=== PATIENT | female | born 1950 | race Caucasian/White ===

== ENCOUNTER 2024-04-05 13:45 | Outpatient (AMB) | payer MEDICARE, OTHER, SELFPAY ==
--- NOTE | 2024-04-05 13:52 | A.OFFVIS_ITS ---
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 Allergies morphine Allergy (Severe, Verified 04/05/24 14:08) Anaphylaxis ibuprofen Allergy (Mild, Verified 04/05/24 14:08) Stomach Upset Sulfa (Sulfonamide Antibiotics) Allergy (Mild, Verified 04/05/24 14:08) nausa cortizon Allergy (Mild, Uncoded 04/05/24 14:08) Flushing Medication List - Last Reconciled 04/05/24 by Carlito Espitia MD cetirizine (Zyrtec) 10 mg PO DAILY PRN cholecalciferol (vitamin D3) 50 mcg PO DAILY famotidine 40 mg PO BID lisinopril 20 mg PO DAILY mecobalamin (vitamin B12) mcg PO metoprolol succinate ER 100 mg PO DAILY jfalfhtg-lejcitc-epkp-lutein tabs PO rosuvastatin 20 mg PO DAILY HPI Comments Details: Thank you for referring Angelia in cardiology consultation today for management of hypertension and noted fast heart rate. She said this started in October. Recently she has been taken off her estrogen replacement therapy and she is started having her postmenopausal symptoms at this time. However in October she was noted to have elevated heart rate and blood pressure. At that time metoprolol was added to her regimen and has been gradually increased now to 100 mg. Her heart rate has as a result on her own monitoring come down. Her blood pressure also has trended down. She comes today says occasionally feels palpitation when she lays on her left side where she feels heart rate racing. No skipped heartbeats. Since increasing her metoprolol with heart rate has trended down. Blood pressure is also better controlled. She comes to discuss management of her tachycardia and the cause for it as well as management of her blood pressure. She denies any other exertional symptoms. Denies any lightheadedness, syncope. Denies any exertional chest pain. She is planning to travel out of country in the near future and is low stressed about it although says that not very concerning to her. She also has a recent change in her symptoms with postmenopausal symptoms more frequent now since stopping her estrogen. She denies any orthopnea, PND, leg edema. [facility] Medical History HTN (hypertension) Surgical History Hx of cholecystectomy Hx of hysterectomy Hx of knee surgery Family History Father Lung cancer Mother No problems noted. Social History Patient Tobacco Use Status: Never used Tobacco Review of Systems Const Reports no additional complaints Eyes Reports no additional complaints Card Denies chest pain with activity, Reports rapid heart rate, Denies leg edema, Denies lightheadedness and Denies dyspnea on exertion Resp Reports no additional complaints and Denies dyspnea on exertion GI Reports no additional complaints Reports no additional complaints Musc Reports no additional complaints Neuro Reports no additional complaints Psych Reports no additional complaints Endo Reports no additional complaints Physical Exam Vital Signs: Last Vital Signs Pulse 102 H 04/05/24 13:54 BP 122/74 04/05/24 13:54 BMI result Body Mass Index 35.6 Const General: cooperative, comfortable, no acute distress, alert, awake, Physically active and well groomed Nutritional Appearance: obese Orientation/consciousness: patient oriented x3 Limitations: no limitations HEENT Head: Yes normocephalic and Yes atraumatic Neck Neck: Yes trachea midline, Yes supple and Yes no JVD Resp Effort & Inspection: normal respiratory effort Auscultation: clear to auscultation bilaterally Cardio Jugular venous distension: no JVD Palpation: normal PMI Rate: tachycardic Rhythm: regular rhythm Heart sounds: S1 normal heart sound present, S2 normal heart sound present, no click, no gallops, no murmurs and no rubs GI Auscultation: normal bowel sounds Skin General skin exam: no rashes or lesions noted Neuro General: patient oriented x3 and no focal motor deficits Extrem General: Yes no clubbing, cyanosis or edema Office Procedures EKG Details: EKG shows sinus tachycardia otherwise normal EKG 93958-[id number], Complete Assessment & Plan Assessment & Plan (1) Sinus tachycardia: Code(s): R00.0 - Tachycardia, unspecified Category: Medical Plan: Sinus tachycardia which appears to be physiologic probably related to increased stress as well as recent change in her hormonal status. Will check with TSH and plasma catecholamine levels to rule out any other endocrine issues. Although it seems like at home heart rate has gradually settled down with increased dose of metoprolol with heart rate in the 70s and 80s. At this point time will continue metoprolol therapy which is also a good antihypertensive. Will check Holter monitor once she returns from her trip. Advised stress mitigation strategies. Avoidance of stimulants such as caffeine, pseudo ephedrine and alcohol. (2) HTN (hypertension): Code(s): I10 - Essential (primary) hypertension Category: Medical Plan: Hypertension which is currently well optimized. Management of hypertension was discussed in details. Will continue lisinopril and metoprolol at current dose. Blood pressure seems to be better controlled at this point in time. Advised to continue monitor blood pressure at home maintain a log. Avoidance of stimulants was discussed. Stress mitigation strategies was discussed. Low-salt diet was discussed. Advised to increase fluid intake and participate in weight loss program. Will check with echocardiogram in near future. Will follow with her after testing Orders: Orders TSH reflex Free T4 04/05/24 R00.0 - Tachycardia, unspecified Metanephrines, Plasma 04/05/24 R00.0 - Tachycardia, unspecified CA echo transthoracic complete 2 Months I10 - Essential (primary) hypertension ECG 3 day holter monitor 3 Months R00.0 - Tachycardia, unspecified Coding Level of Care Code New Pt Level 4 (86674) Diagnoses Sinus tachycardia R00.0 HTN (hypertension) I10 CPT Codes EKG - CPT: 31571-Ttuxnykayjowatffr, Complete ([id number])
[2024-04-05 13:54] VITALS: BP 122/74; PULSE 102; BMI 35.6
== END 2024-04-05 14:47 | disposition home or self-care (01) ==
PROVIDERS: PCP Family Medicine; Visit Provider Internal Medicine Cardiovascular Disease
DX: R00.0 Tachycardia, unspecified (principal); I10 Essential (primary) hypertension
CPT/HCPCS: 93010; 99204

== ENCOUNTER 2024-04-05 13:45 | Outpatient (REF) | payer MEDICARE, OTHER, SELFPAY ==
[2024-04-05 16:08] LABS: TSH reflex Free T4 0.77 uIU/mL (0.32-4.0)
[2024-04-10 11:44] LABS: Metanephrine, Free <25 pg/mL (<=57); Normetanephrines, Free 99 pg/mL (<=148); Total Metanephrine, Free 99 pg/mL (<=205)
== END 2024-04-05 13:46 | disposition home or self-care (01) ==
LOC: HO.LAB 13:45
PROVIDERS: PCP Family Medicine; Visit Provider Internal Medicine Cardiovascular Disease
DX: R00.0 Tachycardia, unspecified (principal); I10 Essential (primary) hypertension
CPT/HCPCS: 36415; 83835; 84443; 93005; 99202

== ENCOUNTER → 2024-06-11 10:09 | Outpatient (REF) | payer MEDICARE, OTHER, SELFPAY ==
--- NOTE | 2024-06-11 10:13 | HM_ITS ---
Conclusion: 1. Patient was monitored for total period of 3 days 2. Baseline was normal sinus rhythm with average heart of 85 beats per minute 3. No significant pauses noted 4. Rare PACs and PVCs noted 5. One episode of 15 beat run of SVT, most consistent with atrial fibrillation 117 beats per minute 6. No patient reported events MTDD
--- NOTE | 2024-06-11 10:13 | CA_ITS ---
Transthoracic Echocardiogram Patient (Last, First, Middle): Angelia Roca, Gender: Female Date of : 1950 Age: 73 Procedure Date: 06/11/2024 Procedure Type: Transthoracic Echocardiogram Location: OP Height: 165.1 cm Weight: 96.62 kg BSA: 2.03 m2 Heart Rate: 80 bpm BP: 132 / 72 mmHg Supervisor [place]: JACQUI Referring MD: Carlito Espitia MD Symptoms: I10 - Essential (primary) hypertension Study Quality: Adequate w contrast ECG Rhythm: Sinus Conclusions: - The left ventricular systolic function is normal. The calculated ejection fraction is 56% by biplane method. - No obvious valvular pathology seen on this study. Findings Procedure Information Contrast agent, definity, is being given per protocol without apparent complications. The quality of the study was technically difficult. The study quality is limited by patients body habitus. Left Ventricle Normal left ventricular cavity size. There is normal left ventricular wall thickness. The left ventricular systolic function is normal. The calculated ejection fraction is 56% by biplane method. There is no evidence of regional wall motion abnormalities. Diastolic function is normal for age. Right Ventricle Normal right ventricular cavity size and systolic function. Atria Both atria are normal in size. Aortic Valve There is a normal trileaflet aortic valve. There is no aortic valve stenosis. There is no aortic valve regurgitation. Mitral Valve There is mild anterior mitral leaflet thickening. There is no mitral valve regurgitation. There is no mitral valve stenosis. Pulmonic Valve The pulmonic valve is likely normal. Tricuspid Valve Normal tricuspid valve structure. There is trace tricuspid valve regurgitation. There is no evidence of pulmonary hypertension. Great Vessels The aortic annulus, sinuses of valsalva, and asc aorta are normal in size. Venous The inferior vena cava was not well visualized. Pericardium/Pleural There is no evidence of pericardial effusion. Prior Study Comparison No prior study available for comparison. Recommendations, Care & Conclusions No obvious valvular pathology seen on this study. Measurements 2D Linear Measurements IVSd: 0.70 0.6-0.9/0.6-1.0 cm LVIDd: 4.95 3.9-5.3/4.2-5.9 cm LVIDd Index: 2.44 2.4-3.2/2.2-3.1 cm/m2 LVIDs: 3.29 2.0-3.6 cm LVPWd: 0.69 0.7-1.1 cm LA Diam: 3.60 2.7-3.8/3.0-4.0 cm LAIDs Index: 1.77 1.5-2.3 cm/m2 LV Mass: 139.90 67-162/88-224 g LV Mass Index: 68.92 43-95/49-115 g/m2 LVOT Diam: 2.30 3.0+(-)1.3 cm 2D Systolic Function EF 4C: 54.00 >55% EF 2C: 57.90 >55% EF BiP: 55.80 >55% Mitral Valve MV Pk E: 0.73 MV PK A: 0.90 MV Decel Time: 227.00 E/A: 0.80 E'Lateral: 10.20 E'Medial: 5.98 E/E' Med: 12.20 E/E' Lat: 7.10 PHT: 67.00 MVA PHT: 3.28 Decel Tyler: 3.21 Aortic Valve AoV Pk Carroll: 1.04 AoV Pk Grad: 4.00 ARIADNA: 4.66 LVOT LVOT Pk Carroll: 0.97 LVOT Mn Carroll: 0.79 LVOT VTI: 0.23 LVOT Pk Grad: 4.00 LVOT Mn Grad: 3.00 LVOT Diam: 2.30 LVOT Area: 4.15 Diastolic Function MV Pk E: 0.73 MV Pk A: 0.90 E/A: 0.80 E'Medial: 5.98 E/E' Med: 12.20 E' Laterial: 10.20 E/E' Lat: 7.10 Right Ventricle TAPSE (mm): 20.90 TVS' Carroll: 9.79 Tricuspid Valve TR Pk Carroll: 2.16 TR Pk Grad: 19.00 RA Press: 3.00 RVSP: 22.00 Great Vessels Aorta Sinus of Valsalva: 2.90 2.0-3.5 cm Ao Asc: 3.30 2.1-3.4 cm Pulmonary Veins Pulm Vein S/D 1.70 Pulmonary Valve PV Pk Carroll: 0.74 Peak PV Grad: 2.00 Updated in Other Vendor System with Status of Final Francisco J Burroughs MD electronically signed on 06/11/2024 11:52:53 AM with status of Final
== END ==
LOC: HO.CARD 10:09
PROVIDERS: PCP Family Medicine; Visit Provider Internal Medicine Cardiovascular Disease
DX: R00.0 Tachycardia, unspecified (principal); I10 Essential (primary) hypertension
CPT/HCPCS: 93242; 93306; Q9957

== ENCOUNTER → 2024-06-11 10:13 | Outpatient (BNV) | payer MEDICARE, OTHER, SELFPAY | PROVIDERS: PCP Family Medicine; Visit Provider Internal Medicine | DX: I49.1 Atrial premature depolarization (principal); I49.3 Ventricular premature depolarization | CPT/HCPCS: 93244; 93306 ==

== ENCOUNTER 2024-06-14 14:44 | Outpatient (AMB) | payer MEDICARE, OTHER, SELFPAY ==
[2024-06-14 14:48] VITALS: BP 124/80; PULSE 98; BMI 35.9
--- NOTE | 2024-06-14 14:48 | MHC.OFFVIS ---
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 Allergies morphine Allergy (Severe, Verified 04/05/24 14:08) Anaphylaxis ibuprofen Allergy (Mild, Verified 04/05/24 14:08) Stomach Upset Sulfa (Sulfonamide Antibiotics) Allergy (Mild, Verified 04/05/24 14:08) nausa cortizon Allergy (Mild, Uncoded 04/05/24 14:08) Flushing Medication List - Last Reconciled 06/14/24 by Carlito Espitia MD cetirizine (Zyrtec) 10 mg PO DAILY PRN cholecalciferol (vitamin D3) 50 mcg PO DAILY famotidine 40 mg PO BID lisinopril 20 mg PO DAILY mecobalamin (vitamin B12) mcg PO metoprolol succinate ER 100 mg PO DAILY gfaixeix-taeglwj-klye-lutein tabs PO rosuvastatin 20 mg PO DAILY HPI Comments Details: Angelia comes for follow-up. No new cardiac symptoms at this point. She says a blood pressure heart rate have been well controlled at home. Her endocrine workup is within normal limits. Echocardiogram shows normal cardiac structure and function. Her Holter monitor was returned today and I do not have it for review and has not been resulted. [facility] Medical History HTN (hypertension) Surgical History Hx of cholecystectomy Hx of hysterectomy Hx of knee surgery Family History Father Lung cancer Mother No problems noted. Social History Patient Tobacco Use Status: Never used Tobacco Review of Systems Const Denies chills, Denies fatigue, Denies fever(s), Denies frequent falls, Denies weakness, Denies weight gain and Denies weight loss ENT Denies dizziness Card Denies chest pain, Denies leg edema, Denies lightheadedness, Denies palpitations, Denies dyspnea, Denies dyspnea on exertion, Denies orthopnea and Denies other (loss of consciousness) Resp Denies cough, Denies dyspnea and Denies dyspnea on exertion GI Denies hematochezia and Denies change in stool character Musc Denies abnormal gait, Denies muscle weakness, Denies numbness, Denies radiating pain into limb and Denies tingling Neuro Denies abnormal gait, Denies dizziness, Denies frequent falls, Denies numbness, Denies tingling and Denies weakness Endo Denies fatigue and Denies palpitations Physical Exam Vital Signs: Last Vital Signs Pulse 98 06/14/24 14:48 BP 124/80 06/14/24 14:48 BMI result Body Mass Index 35.9 Const General: cooperative, comfortable, no acute distress, alert, awake, Physically active and well groomed Nutritional Appearance: obese Orientation/consciousness: patient oriented x3 Limitations: no limitations HEENT Head: Yes normocephalic and Yes atraumatic Neck Neck: Yes trachea midline, Yes supple and Yes no JVD Resp Effort & Inspection: normal respiratory effort Auscultation: clear to auscultation bilaterally Cardio Jugular venous distension: no JVD Palpation: normal PMI Rate: tachycardic Rhythm: regular rhythm Heart sounds: S1 normal heart sound present, S2 normal heart sound present, no click, no gallops, no murmurs and no rubs GI Auscultation: normal bowel sounds Skin General skin exam: no rashes or lesions noted Neuro General: patient oriented x3 and no focal motor deficits Extrem General: Yes no clubbing, cyanosis or edema Assessment & Plan Assessment & Plan (1) HTN (hypertension): Code(s): I10 - Essential (primary) hypertension Category: Medical Plan: Hypertension sinus tachycardia both controlled by increase metoprolol therapy. Continue the same. Continue lisinopril therapy as well. Advised to maintain adequate hydration. Stress mitigation strategies were discussed. Advised to increase exercise to improve vagal tone. Will review the Holter monitor for any arrhythmias although unlikely. Further treatment based if at all on abnormality on the Holter monitor. Continue risk factor modification. Currently on high-intensity statin therapy. Target goal LDL less than 100 mg/dL. Will follow up in the clinic in 1 year's time on her request. Thank you for allowing me to partake in the care Coding Level of Care Code Est Pt Level 3 (20962) Diagnoses HTN (hypertension) I10
== END 2024-06-14 15:21 | disposition home or self-care (01) ==
PROVIDERS: PCP Family Medicine; Visit Provider Internal Medicine Cardiovascular Disease
DX: I10 Essential (primary) hypertension (principal)
CPT/HCPCS: 99213

== ENCOUNTER → 2024-06-14 14:44 | Outpatient (BNVA) | payer MEDICARE, OTHER, SELFPAY | PROVIDERS: PCP Family Medicine; Visit Provider Internal Medicine Cardiovascular Disease | DX: I10 Essential (primary) hypertension (principal) | CPT/HCPCS: 99212 ==

== ENCOUNTER 2024-08-09 15:50 | Emergency (ER) | payer MEDICARE, OTHER, SELFPAY ==
--- NOTE | ~2024-08-09 | CT_ITS ---
EXAMINATION: CT ABDOMEN AND PELVIS WITH CONTRAST CLINICAL INFORMATION: Right lower quadrant pain, nausea/vomiting COMPARISON: None available. TECHNIQUE: Multidetector volumetric images were obtained from the superior aspect of the liver through the pubic symphysis following administration 85 mL of Omnipaque 350 intravenous contrast. Sagittal and coronal reformatted images were obtained on the technologist's workstation. Oral contrast: No This CT examination was performed using dose optimization techniques as appropriate, variously including the following: *Automated exposure control *Adjustment of mA and/or kV according to patient size (this includes techniques or standardized protocols for targeted exams where dose is matched to indication/reason for exam; i.e. extremities or head) *Use of iterative reconstruction technique DLP: 842 mGy-cm FINDINGS: Limited evaluation in some regions due to motion artifact. LUNG BASES: The visualized lung bases are unremarkable. LIVER, GALLBLADDER, AND BILIARY TREE: The liver is normal in size, shape, and attenuation. No focal hepatic lesion or significant biliary ductal dilatation is present. Patient is status post cholecystectomy. PANCREAS: Unremarkable. SPLEEN: Unremarkable. ADRENAL GLANDS: Unremarkable. KIDNEYS AND URETERS: Bilateral nephrograms are symmetric. No hydronephrosis or obstructing calculus identified. Small hypodensity in the posterior right kidney favors a cyst; no follow-up recommended. BLADDER: Minimally distended and suboptimally assessed. Subtle stranding is noted adjacent to the anterior aspect of the bladder. GASTROINTESTINAL TRACT: No evidence of bowel obstruction or significant wall thickening. Sigmoid colon diverticulosis is noted. The appendix is unremarkable. No free fluid or free air is seen. ABDOMINAL WALL: No significant hernia is appreciated. LYMPH NODES: Normal. VASCULAR: Mild scattered atherosclerotic calcifications. PELVIC VISCERA: Patient is status post hysterectomy. OSSEOUS STRUCTURES: Disc space narrowing and endplate osteophytes, most prominently in the lower thoracic spine. CT/CT abdomen pelvis w IV con IMPRESSION: 1. Limited evaluation in some regions due to motion artifact. Subtle stranding adjacent to the anterior aspect of the bladder, which could reflect cystitis in the proper clinical setting. Correlation with urinalysis is recommended. 2. Normal appendix. 3. Sigmoid colon diverticulosis without diverticulitis. Electronically signed by: Vipul Ayala MD 08/09/2024 09:47 PM EDT
[2024-08-09 15:56] VITALS: BP 140/81; PULSE 100; RESP 18; TEMP 37.2; O2SAT 97; BMI 36.5
[2024-08-09 16:02] VITALS: BP 140/81; PULSE 100; RESP 18; TEMP 37.2; O2SAT 97
--- NOTE | 2024-08-09 16:03 | PC.NURSE ---
Pt. in ED room 22 at this time. On continuous SPO2 monitor. VSS
--- NOTE | 2024-08-09 16:17 | PC.NURSE ---
20G IV inserted to L lower forearm. Tolerated well.
--- NOTE | 2024-08-09 16:22 | ECG_ITS ---
Test Reason : ABD PAIN Blood Pressure : / mmHG Vent. Rate : 088 BPM Atrial Rate : 088 BPM P-R Int : 156 ms QRS Dur : 074 ms QT Int : 380 ms P-R-T Axes : 049 003 015 degrees QTc Int : 459 ms Normal sinus rhythm Normal ECG No previous ECGs available Referred By: Emelia Dumas Electronically Signed By:ARIANNA BERNARD
[2024-08-09 16:33] LABS: MANUAL DIFF FLAG NO
[2024-08-09] MEDS: ondansetron HCL 4 MG/2 ML VIAL IVPUSH (16:33)
[2024-08-09] MEDS: Ketorolac Tromethamine 30 MG/ML VIAL IVPUSH (16:33)
[2024-08-09] MEDS: Famotidine/PF 20 MG/2 ML VIAL IVPUSH (16:33)
[2024-08-09] MEDS: 0.9 % Sodium Chloride 1,000 ML 999 ML IVCONT (16:33)
--- NOTE | 2024-08-09 16:33 | PC.NURSE ---
Pt. medicated per JAN.
[2024-08-09 16:36] LABS: Basophils Percent Auto 0.2 % (0-2); Eosinophils Absolute Auto 0.1 X10*3/uL (0.0-0.4); Eosinophils Percent Auto 0.6 % (0-4); Hematocrit 44.7 % (37.0-47.0); Imm Gran Abs Auto 0.02 X10*3/uL (0.00-0.03); Imm Gran Pct Auto 0.2 % (0.0-0.4); Lymphocytes Absolute Auto 2.2 X10*3/uL (1.2-4.9); Lymphocytes Percent Auto 26.2 % (20-40); Mean Corpuscular HGB Conc 33.6 g/dl (31.0-35.0); Mean Corpuscular Hemoglobin 31.5 pg (27.0-33.0); Mean Corpuscular Volume 93.9 fL (80.0-98.0); Mean Platelet Volume 12.2 fL (9.4-12.3); Monocytes Absolute Auto 0.4 X10*3/uL (0.1-1.2); Monocytes Percent Auto 4.9 % (2-11); Neutrophils Absolute Auto 5.7 x10*3/uL (2.0-8.3); Neutrophils Percent Auto 67.9 % (45-73); Platelet Count 213 X10*3/uL (160-400); Red Blood Count 4.76 X10*6/uL (4.20-5.50); Red Cell Distribution Width 12.4 % (11.0-16.0); White Blood Count 8.4 X10*3/uL (4.8-10.8)
--- NOTE | 2024-08-09 16:40 | ED.ABDPAIN ---
HPI - Abdominal Pain General Chief Complaint: Abdominal Pain Stated Complaint: right side abd pain, vomiting Time Seen by Provider: 08/09/24 16:00 Source: patient and family Mode of arrival: ambulatory Limitations: no limitations History of Present Illness ED Provider: Dr. Emelia Dumas HPI narrative: Patient comes to the emergency room complaining right lower quadrant pain. Patient states that she has been having posterior right hip pain for about 6 weeks, previously diagnosed with bursitis of the hip. However, this pain is something completely different and new that started approximately 24 hours ago. Patient states she has been having nausea and vomiting, no diarrhea. Patient complaining of chills, no known fever. Pain is constant, radiating towards the groin area. Patient denies any falls or trauma. Patient denies hematuria or dysuria, denies history of kidney stones Related Data Home Medications ?Medication ?Instructions ?Recorded ?Confirmed cetirizine 10 mg capsule (Zyrtec) 10 mg PO DAILY PRN 04/05/24 06/14/24 cholecalciferol (vitamin D3) 50 50 mcg PO DAILY 04/05/24 06/14/24 mcg (2,000 unit) capsule famotidine 40 mg tablet 40 mg PO BID 04/05/24 06/14/24 lisinopril 20 mg tablet 20 mg PO DAILY 04/05/24 06/14/24 mecobalamin (vitamin B12) 500 mcg mcg PO 04/05/24 06/14/24 chewable tablet metoprolol succinate 100 mg 100 mg PO DAILY 04/05/24 06/14/24 tablet,extended release 24 hr livdphaa-hhwzymq-jgex-lutein tablet tab PO 04/05/24 06/14/24 rosuvastatin 20 mg tablet 20 mg PO DAILY 04/05/24 06/14/24 Allergies Allergy/AdvReac Type Severity Reaction Status Date / Time morphine Allergy Severe Anaphylaxis Verified 08/09/24 15:59 ibuprofen Allergy Mild Stomach Verified 08/09/24 15:59 Upset Sulfa (Sulfonamide Allergy Mild nausa Verified 08/09/24 15:59 Antibiotics) cortizon Allergy Mild Flushing Uncoded 08/09/24 15:59 Review of Systems Review of Systems Constitutional : No Weight loss, No Fever, No Chills, No Night Sweats, No Fatigue, No Malaise ENT/Mouth : No Hearing loss, No Ear Pain, No Nasal Congestion, No Sinus Pain, No Hoarseness, No sore throat, No Rhinorrhea, No Swallowing Difficulty Eyes: No Eye Pain, No Swelling, No Redness, No Foreign Body, No Discharge, No Vision Changes Cardiovascular : No Chest Pain, No SOB, No Dyspnea on Exertion, No Orthopnea, No Edema, No Palpitations Respiratory : No Cough, No Sputum, No Wheezing, No Smoke Exposure, No Dyspnea Gastrointestinal : Complaining of nausea and vomiting, no diarrhea, complaining of constant right lower quadrant pain slightly radiating towards the right groin area Genitourinary : no irregular bleeding, No Dysuria, No Urinary Frequency, No Hematuria, No Urinary Incontinence, No Urgency, No Flank Pain, No Urinary Flow Changes, No Hesitancy Musculoskeletal : Complaining of chronic bursitis of the right hip, No Myalgias, No Joint Swelling Skin : No Skin Lesions, No rash Neuro : No Weakness, No Numbness, No Paresthesias, No Loss of Consciousness, No Dizziness, No Headache Psych : No Anxiety/Panic, No Depression, No SI/HI/AH/VH, No Social Issues, Heme/Lymph: No Bruising, No Bleeding,No Lymphadenopathy Endocrine : No Polyuria, No Polydipsia, No Temperature Intolerance PMFSH Past Medical History Medical History HTN (hypertension) Surgical History Hx of cholecystectomy Hx of hysterectomy Hx of knee surgery Family History Family History Father Lung cancer Mother No problems noted. Social History Social History Patient Tobacco Use Status: Never used Tobacco Smoked in Last 30 Days: No Use of substances other than those prescribed or required for medical reasons: No Advance Directives: No Advance Directives Information Provided: No Do you have a plan to hurt others: No Plan Physical Exam ED Vital Signs: Vital Signs - 24 hr 08/09/24 15:56 08/09/24 16:02 08/09/24 18:00 Temperature 98.9 F 98.9 F 98.2 F Pulse Rate 100 100 91 Respiratory Rate 18 18 18 Blood Pressure 140/81 H 140/81 H 112/53 L Pulse Oximetry 97 97 96 Oxygen Delivery Method Room Air Room Air Room Air 08/09/24 20:00 08/09/24 22:00 Temperature 98.2 F 98.9 F Pulse Rate 81 99 Respiratory Rate 18 18 Blood Pressure 148/80 H 127/66 Pulse Oximetry 93 92 Oxygen Delivery Method Room Air Room Air BMI result Body Mass Index 36.5 Const Other: Appearance: Alert. Oriented X3. No acute distress. Patient seems uncomfortable, in pain Eyes: Pupils equal, round and reactive to light. ENT: Pharynx normal. Neck: Normal inspection. Neck supple. No lymph nodes noted. No crepitus CVS: Normal heart rate and rhythm. Pulses normal. Normal S1 and S2 Respiratory: No respiratory distress. Breath sounds normal. No Wheezing. No rales Abdomen: Soft, slight tenderness to palpation in the right upper quadrant but more prominent in the right lower quadrant. No rebound. Skin: Skin warm and dry. Normal skin color. Normal skin turgor. Extremities: No lower extremity edema. No Lacerations. No Rash Neuro: Oriented X 3. No motor deficit. No sensory deficit. Moving all extremities. No slurred speech. CN 2 through 12 grossly intact Psych: calm, cooperative, normal affect Course Course Course Narrative: -all of patient's labs and imaging pending -patient receiving IV fluids, Zofran, Pepcid and ketorolac. Of note, patient known to have anaphylaxis reaction to morphine Medical Decision Making Medical Decision Making MDM Narrative: My interpretation of labs: Normal hematology, no significant abnormality and chemistry. Urinalysis has very mild proteinuria. No signs of UTI. -CT scans do not show any obvious abnormality other than possible cystitis. However, patient does not have a UTI. -after patient received the 1st dose of medication, patient states that she is no longer nauseous because she is no longer in pain. -patient was ambulated in the emergency room, did well walking with steady gait and painless. -patient instructed to follow-up with her primary care physician, patient instructed to return if any of her symptoms returned. Differential Diagnosis Differential Diagnoses: The differential diagnosis associated with the presentation includes (Appendicitis, ureterolithiasis, SBO, incarcerated hernia, bursitis, musculoskeletal pain) Admission/Observation Consideration of admission/observation: Escalation of care including admission/observation considered (Given patient's level of discomfort on arrival, admission/observation was considered) Lab Data MDM Lab Attestation statement: I reviewed the patient's lab results. 08/09/24 16:29 08/09/24 19:15 Labs: Lab Results 08/09/24 08/09/24 08/09/24 Range/Units 16:29 16:55 19:15 WBC 8.4 (4.8-10.8) X10*3/uL RBC 4.76 (4.20-5.50) X10*6/uL Hgb 15.0 (12.0-16.0) g/dl Hct 44.7 (37.0-47.0) % MCV 93.9 (80.0-98.0) fL MCH 31.5 (27.0-33.0) pg MCHC 33.6 (31.0-35.0) g/dl RDW 12.4 (11.0-16.0) % Plt Count 213 (160-400) X10*3/uL MPV 12.2 (9.4-12.3) fL Immature Gran % (Auto) 0.2 (0.0-0.4) % Neut % (Auto) 67.9 (45-73) % Lymph % (Auto) 26.2 (20-40) % Nicholas % (Auto) 4.9 (2-11) % Eos % (Auto) 0.6 (0-4) % Baso % (Auto) 0.2 (0-2) % Lymph # (Auto) 2.2 (1.2-4.9) X10*3/uL Nicholas # (Auto) 0.4 (0.1-1.2) X10*3/uL Eos # (Auto) 0.1 (0.0-0.4) X10*3/uL Baso # (Auto) 0.0 (0.0-0.2) X10*3/uL Abs Immat Gran (auto) 0.02 (0.00-0.03) X10*3/uL Absolute Neuts (auto) 5.7 (2.0-8.3) x10*3/uL Absolute Nucleated RBC 0.000 (0.0-0.012) X10*3/uL Nucleated RBC % (auto) 0.0 (0.0-0.2) /100WBC PT 11.7 (10.9-12.4) SEC INR 1.0 (0.9-1.1) Sodium 142 (135-145) mmol/L Potassium 4.8 (3.3-5.1) mmol/L Chloride 109 H (96-108) mmol/L Carbon Dioxide 26 (22-29) mmol/L Anion Gap 12 (12-20) BUN 16 (9-16) mg/dL Creatinine 1.02 (0.5-1.4) mg/dL Estim Creat Clear Calc 59.0 Estimated GFR 53 Random Glucose 129 H (60-115) mg/dL Lactic Acid 1.4 (0.5-2.0) mmol/L Calcium 9.4 (8.4-10.2) mg/dL Magnesium 2.0 (1.6-2.6) mg/dL Total Bilirubin 0.4 (0.0-1.0) mg/dL Direct Bilirubin 0.1 (0.0-0.5) mg/dL AST 24 (5-31) U/L ALT 28 (0-31) U/L Alkaline Phosphatase 91 (39-117) U/L Troponin I High Sens < 2.7 (<3.5-17.0) ng/L Total Protein 6.9 (6.5-8.0) g/dL Albumin 4.1 (3.5-5.0) g/dL Lipase 27 (8-78) U/L Urine Color Dark Yellow Urine Appearance Clear Urine pH 5.0 (5.0-9.0) Ur Specific [place] 1.025 (1.005-1.025) Urine Protein 30 (1+) H (Neg-Trace) mg/dL Urine Glucose (UA) Negative (Negative) mg/dL Urine Ketones Trace (Negative) mg/dL Urine Blood Negative (Negative) Urine Nitrite Negative (Negative) Ur Leukocyte Esterase Negative (Negative) Urine RBC 0-2 (0-2) /HPF Urine WBC 0-5 (0-5) /HPF Ur Squamous Epith Cells 0-2 (0-2) /HPF Urine Bacteria None Seen (None Seen) Hyaline Casts 3-5 (0-2) /LPF Independent Interpretation I performed an independent interpretation of an: CT Scan Radiology Impression Discussion of test interpretation with radiology: I have reviewed the radiologist's reading. Radiologist Impression: FINDINGS: Limited evaluation in some regions due to motion artifact. LUNG BASES: The visualized lung bases are unremarkable. LIVER, GALLBLADDER, AND BILIARY TREE: The liver is normal in size, shape, and attenuation. No focal hepatic lesion or significant biliary ductal dilatation is present. Patient is status post cholecystectomy. PANCREAS: Unremarkable. SPLEEN: Unremarkable. ADRENAL GLANDS: Unremarkable. KIDNEYS AND URETERS: Bilateral nephrograms are symmetric. No hydronephrosis or obstructing calculus identified. Small hypodensity in the posterior right kidney favors a cyst; no follow-up recommended. BLADDER: Minimally distended and suboptimally assessed. Subtle stranding is noted adjacent to the anterior aspect of the bladder. GASTROINTESTINAL TRACT: No evidence of bowel obstruction or significant wall thickening. Sigmoid colon diverticulosis is noted. The appendix is unremarkable. No free fluid or free air is seen. ABDOMINAL WALL: No significant hernia is appreciated. LYMPH NODES: Normal. VASCULAR: Mild scattered atherosclerotic calcifications. PELVIC VISCERA: Patient is status post hysterectomy. OSSEOUS STRUCTURES: Disc space narrowing and endplate osteophytes, most prominently in the lower thoracic spine. CT/CT abdomen pelvis w IV con IMPRESSION: 1. Limited evaluation in some regions due to motion artifact. Subtle stranding adjacent to the anterior aspect of the bladder, which could reflect cystitis in the proper clinical setting. Correlation with urinalysis is recommended. 2. Normal appendix. 3. Sigmoid colon diverticulosis without diverticulitis. Independent Historian Clinical information obtained from an independent historian. History obtained from or confirmed by: Spouse and Other (Niece) Medications Administered Discontinued Medications Generic Name Dose Route Start Last Admin Trade Name Freq PRN Reason Stop Dose Admin Famotidine 20 mg 08/09/24 16:25 08/09/24 16:33 Famotidine/Pf 20 Mg/2 Ml Vial IVPUSH 08/09/24 16:26 20 mg ONCE ONE Administration Sodium Chloride 1,000 mls @ 999 mls/hr 08/09/24 16:22 08/09/24 17:55 Ns IVCONT 08/09/24 17:22 Infused .Q1H1M ONE Infusion Acetaminophen 1,000 mg in 100 mls @ 400 mls/hr 08/09/24 21:45 08/09/24 22:14 Ofirmev IV 08/09/24 21:59 Not Given ONCE ONE Iohexol 100 ml 08/09/24 20:07 08/09/24 20:07 Iohexol 350 Mg/Ml 100 Ml Infus..Btl IV 08/09/24 20:08 85 ml ONCE ONE Administration Ketorolac Tromethamine 30 mg 08/09/24 16:24 08/09/24 16:33 Ketorolac Tromethamine 30 Mg/Ml Vial IVPUSH 08/09/24 16:25 30 mg ONCE ONE Administration Ondansetron HCl 4 mg 08/09/24 16:25 08/09/24 16:33 Ondansetron Hcl 4 Mg/2 Ml Vial IVPUSH 08/09/24 16:26 4 mg ONCE ONE Administration Critical Care Time Critical Care Time Critical Care Time: Yes Total Critical Care Time: 45 Attestation: I have personally provided critical care time. Time includes review of lab data, radiology results, discussion with consultants, and monitoring for potential decompensation. Intervention performed as documented. Discharge Plan Discharge Clinical Impression: Abdominal pain Patient Disposition: Home, Self-Care Instructions: Abdominal Pain (ED) Additional Instructions: Please follow-up with your primary care physician tomorrow. If you have any worsening or new symptoms, please return to the emergency room or call 911 Prescriptions: No Action metoprolol succinate 100 mg tablet extended release 24 hr 100 mg PO DAILY lisinopril 20 mg tablet 20 mg PO DAILY famotidine 40 mg tablet 40 mg PO BID rosuvastatin 20 mg tablet 20 mg PO DAILY rovrbzcs-awaflov-qkod-lutein Tablet PO cholecalciferol (vitamin D3) 50 mcg (2,000 unit) capsule 50 mcg PO DAILY mecobalamin (vitamin B12) 500 mcg tablet,chewable PO Zyrtec 10 mg capsule 10 mg PO DAILY PRN Print Language: Divehi
[2024-08-09 17:02] LABS: Troponin-I High Sensitivity < 2.7 ng/L (<3.5-17.0)
[2024-08-09 17:14] LABS: Lactic Acid 1.4 mmol/L (0.5-2.0)
[2024-08-09 17:21] LABS: Prothrombin Time 11.7 SEC (10.9-12.4)
[2024-08-09 18:00] VITALS: BP 112/53; PULSE 91; RESP 18; TEMP 36.8; O2SAT 96
--- NOTE | 2024-08-09 19:00 | PC.NURSE ---
Report taken from Razia Brown RN
[2024-08-09 19:24] LABS: Appearance Urine Clear; Color Urine Dark Yellow; Glucose Urine UA Negative (Negative); Leukocyte Esterase Urine Negative (Negative); Nitrite Urine Negative (Negative); Specific Gravity - Urine 1.025 (1.005-1.025); UMIC TRIGGER UACC YES; Urine Blood Negative (Negative); Urine Ketones Trace mg/dL (Negative); Urine Protein 30 (1+) mg/dL (Neg-Trace)
[2024-08-09 19:41] LABS: Alanine Aminotransferase 28 U/L (0-31); Albumin Level 4.1 g/dL (3.5-5.0); Alkaline Phosphatase 91 U/L (39-117); Anion Gap 12 (12-20); Aspartate Amino Transferase 24 U/L (5-31); Bilirubin Direct 0.1 mg/dL (0.0-0.5); Bilirubin Total 0.4 mg/dL (0.0-1.0); Blood Urea Nitrogen 16 mg/dL (9-16); Calcium 9.4 mg/dL (8.4-10.2); Carbon Dioxide 26 mmol/L (22-29); Chloride 109 mmol/L (96-108); Estimated Glomerular Filt Rate 53; Glucose Random 129 mg/dL (60-115); Lipase 27 U/L (8-78); Potassium 4.8 mmol/L (3.3-5.1); Sodium 142 mmol/L (135-145); Total Protein 6.9 g/dL (6.5-8.0)
[2024-08-09 20:00] VITALS: BP 148/80; PULSE 81; RESP 18; TEMP 36.8; O2SAT 93
[2024-08-09] MEDS: iohexoL 350 MG/ML 100 ML INFUS..BTL IV (20:07)
[2024-08-09 20:14] LABS: Bacteria Urine None Seen (None Seen); RBC Urine 0-2 /HPF (0-2); Squamous Epithelial Cell Urine 0-2 /HPF (0-2); WBC Urine 0-5 /HPF (0-5)
--- NOTE | 2024-08-09 20:45 | PC.NURSE ---
Pt. resting comfortably at this time. Denies complaints or concerns. Call light within reach.
[2024-08-09 22:00] VITALS: BP 127/66; PULSE 99; RESP 18; TEMP 37.2; O2SAT 92
--- NOTE | 2024-08-09 22:27 | PC.NURSE ---
Ambulated with pt. to assess for pain per Kane Dumas MD. Pt. reports no pain.
[2024-08-09] MEDS: Pantoprazole Sodium 40 MG/10 ML VIAL 80 MG IVPUSH (23:15)
== END 2024-08-09 23:55 | disposition home or self-care (01) ==
PROVIDERS: Emergency Provider Emergency Medicine
DX: R10.32 Left lower quadrant pain (principal); Z79.899 Other long term (current) drug therapy
CPT/HCPCS: 36415; 74177; 80048; 80076; 81001; 83605; 83690; 83735; 84484; 85025; 85610; 87040; 93005; 96361; 96374; 96375; 99285; J1885; J2405; J2470; Q9967

== ENCOUNTER 2024-08-10 13:59 | Outpatient (AMB) | payer MEDICARE, OTHER, SELFPAY ==
--- NOTE | 2024-08-10 13:25 | MHC.OFFVIS ---
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 Allergies morphine Allergy (Severe, Verified 08/10/24 14:03) Anaphylaxis ibuprofen Allergy (Mild, Verified 08/10/24 14:03) Stomach Upset Sulfa (Sulfonamide Antibiotics) Allergy (Mild, Verified 08/10/24 14:03) nausa cortizon Allergy (Mild, Uncoded 08/10/24 14:03) Flushing Medication List - Last Reconciled 08/10/24 by Mahesh Fine MD cefuroxime axetil 250 mg PO BID 5 days cetirizine (Zyrtec) 10 mg PO DAILY PRN cholecalciferol (vitamin D3) 50 mcg PO DAILY famotidine 40 mg PO BID ketorolac 10 mg PO TID PRN lisinopril 20 mg PO DAILY mecobalamin (vitamin B12) mcg PO metoprolol succinate ER 100 mg PO DAILY rpwwgejw-mywcaba-tawx-lutein tabs PO ondansetron HCl 4 mg PO Q6H PRN rosuvastatin 20 mg PO DAILY HPI Comments Details: Angelia is a 73-year-old female who was seen in the emergency room yesterday with complaints of right lower quadrant pain and nausea. Today she feels better but she still has a vague sensation of discomfort in the right lower quadrant. CTAP w/wo IV contrast-reported no acute findings, kidneys negative for stones or hydronephrosis. Subtle stranding adjacent to the anterior aspect of the bladder, nonspecific. The patient gives a history of about 6 weeks ago having right hip pain she was evaluated and told that there was bursitis. On Tuesday08/08/2024, she states she had severe right lower quadrant pain and had associated nausea and vomiting for most of the day into the following day that she presented to the ED. CT noted subtle findings that were nonspecific with some stranding around the bladder. Urinalysis negative for blood negative for leukocytes. The patient states that what is different regarding her urination is that for several weeks she has been getting urine leakage in has needed to wear a pad. It is unclear if her right sided pain is related to the urinary tract, as she has new symptoms of incontinence and there are subtle changes that may suggest cystitis I will empirically trial her on Ceftin 250 mg twice a day for 5 days and send her urine for culture. [facility] Medical History HTN (hypertension) Surgical History Hx of cholecystectomy Hx of hysterectomy Hx of knee surgery Family History Father Lung cancer Mother No problems noted. Social History Patient Tobacco Use Status: Never used Tobacco Review of Systems Const All systems reviewed & are unremarkable except as noted in HPI and below Reports no additional complaints Eyes Reports no additional complaints ENT Reports no additional complaints Card Reports no additional complaints Resp Reports no additional complaints GI Reports no additional complaints Reports as per HPI Musc Reports no additional complaints Skin/Breast Reports system reviewed and no additional complaints, except as documented Neuro Reports no additional complaints Psych Reports no additional complaints Endo Reports no additional complaints Aram/Lymph Reports no additional complaints Aller/Immun Reports no additional complaints Physical Exam Const General: cooperative, healthy appearing and no acute distress Orientation/consciousness: patient oriented x3 HEENT Head: Yes normal to inspection, Yes normocephalic and Yes atraumatic Eyes Conjunctivae: conjunctivae normal Neck Neck: Yes normal visual inspection and Yes trachea midline Chest Chest palpation & inspection: normal inspection of the chest Resp Effort & Inspection: normal respiratory effort GI Inspection: Yes normal to inspection Palpation (GI): Soft to palpation Neuro General: patient oriented x3 Psych Appearance: grossly normal Office Procedures Post Void Residual Post Residual Void Post Void Residual (PVR): 22 [id number] Void Residual by ultrasound Results AMB Urinalysis, Automated UA Leukoctes 0 [place]/uL Last Edit by RACHAEL Kaye on 08/10/24 14:14 UA Nitrite Negative Last Edit by RACHAEL Kaye on 08/10/24 14:14 UA Urobilinogen 0.2 mg/dL Last Edit by RACHAEL Kaye on 08/10/24 14:14 UA Protein 15 mg/dL Last Edit by RACHAEL Kaye on 08/10/24 14:14 UA pH 5.0 Last Edit by RACHAEL Kaye on 08/10/24 14:14 UA Blood 0 [place]/uL Last Edit by RACHAEL Kaye on 08/10/24 14:14 UA Specific [place] 1.025 Last Edit by RACHAEL Kaye on 08/10/24 14:14 UA Ketone Positive Last Edit by RACHAEL Kaye on 08/10/24 14:14 UA Bilirubin 0 mg/dL Last Edit by RACHAEL Kaye on 08/10/24 14:14 UA Glucose 0 mg/dL Last Edit by RACHAEL Kaye on 08/10/24 14:14 Results Reviewed Results Reviewed: Laboratory Last Values Urine pH (Auto) 5.0 08/10/24 14:13 Specific [place] (Auto) 1.025 08/10/24 14:13 Urine Protein (Auto) 15 mg/dL 08/10/24 14:13 Glucose (UA)(Auto) 0 mg/dL 08/10/24 14:13 Urine Ketones (Auto) Positive 08/10/24 14:13 Urine Blood (Auto) 0 [place]/uL 08/10/24 14:13 Urine Nitrite (Auto) Negative 08/10/24 14:13 Urine Bilirubin (Auto) 0 mg/dL 08/10/24 14:13 Urine Urobilinogen (Auto) 0.2 mg/dL 08/10/24 14:13 Leukocyte Esterase (Auto) 0 [place]/uL 08/10/24 14:13 Date of Service: 08/09/24 CT ABDOMEN AND PELVIS WITH CONTRAST CLINICAL INFORMATION: Right lower quadrant pain, nausea/vomiting COMPARISON: None available. TECHNIQUE: Multidetector volumetric images were obtained from the superior aspect of the liver through the pubic symphysis following administration 85 mL of Omnipaque 350 intravenous contrast. Sagittal and coronal reformatted images were obtained on the technologist's workstation. Oral contrast: No This CT examination was performed using dose optimization techniques as appropriate, variously including the following: *Automated exposure control *Adjustment of mA and/or kV according to patient size (this includes techniques or standardized protocols for targeted exams where dose is matched to indication/reason for exam; i.e. extremities or head) *Use of iterative reconstruction technique DLP: 842 mGy-cm FINDINGS: Limited evaluation in some regions due to motion artifact. LUNG BASES: The visualized lung bases are unremarkable. LIVER, GALLBLADDER, AND BILIARY TREE: The liver is normal in size, shape, and attenuation. No focal hepatic lesion or significant biliary ductal dilatation is present. Patient is status post cholecystectomy. PANCREAS: Unremarkable. SPLEEN: Unremarkable. ADRENAL GLANDS: Unremarkable. KIDNEYS AND URETERS: Bilateral nephrograms are symmetric. No hydronephrosis or obstructing calculus identified. Small hypodensity in the posterior right kidney favors a cyst; no follow-up recommended. BLADDER: Minimally distended and suboptimally assessed. Subtle stranding is noted adjacent to the anterior aspect of the bladder. GASTROINTESTINAL TRACT: No evidence of bowel obstruction or significant wall thickening. Sigmoid colon diverticulosis is noted. The appendix is unremarkable. No free fluid or free air is seen. ABDOMINAL WALL: No significant hernia is appreciated. LYMPH NODES: Normal. VASCULAR: Mild scattered atherosclerotic calcifications. PELVIC VISCERA: Patient is status post hysterectomy. OSSEOUS STRUCTURES: Disc space narrowing and endplate osteophytes, most prominently in the lower thoracic spine. IMPRESSION: 1. Limited evaluation in some regions due to motion artifact. Subtle stranding adjacent to the anterior aspect of the bladder, which could reflect cystitis in the proper clinical setting. Correlation with urinalysis is recommended. 2. Normal appendix. 3. Sigmoid colon diverticulosis without diverticulitis. Assessment & Plan Assessment & Plan (1) Abdominal pain: Code(s): R10.9 - Unspecified abdominal pain Category: Medical (2) Urinary incontinence: Code(s): R32 - Unspecified urinary incontinence Category: Medical (3) Abnormal finding on CT scan: Code(s): R93.89 - Abnormal findings on diagnostic imaging of other specified body structures Category: Medical Plan Urine culture, Ceftin 250 mg twice a day for 5 days. Follow-up in 6-8 weeks re-evaluate lower urinary tract symptoms of incontinence. Orders: Orders AMB Urinalysis Automated 08/10/24 Z13.9 - Encounter for screening, unspecified Urine Culture 08/10/24 N39.0 - Urinary tract infection, site not specified Medications: New cefuroxime axetil 250 mg PO BID 5 days 10 tabs 0RF Patient Instructions: The patient had an opportunity to ask questions regarding treatment plan. The patient expressed understanding and agreement with the above treatment plan. The patient is aware they should contact our office by phone for worsening of their current condition or the appearance of new symptoms. Compliance is encouraged with any medications and followup testing that is ordered. It is a privilege to be allowed the opportunity to participate in the urologic care of your patient. If you have any questions or concerns regarding treatment for the above conditions please do not hesitate to contact me. The office telephone contact is [phone]. This note is constructed in part using voice recognition software. While every effort has been made to ensure accuracy religious education teacher errors may have been included. Yours sincerely, Mahesh Fine MD Coding Level of Care Code New Pt Level 4 (66818) Diagnoses Abdominal pain R10.9 Urinary incontinence R32 Abnormal finding on CT scan R93.89 CPT Codes Post Residual Void - PVR CPT Code: 22986-[id number] Void Residual by ultrasound ([id number])
== END 2024-08-10 14:47 | disposition home or self-care (01) ==
PROVIDERS: Visit Provider Urology
DX: R10.9 Unspecified abdominal pain (principal); R32 Unspecified urinary incontinence; R93.89 Abnormal findings on diagnostic imaging of other specified body structures
CPT/HCPCS: 99204

== ENCOUNTER 2024-08-10 13:59 | Outpatient (REF) | payer MEDICARE, OTHER, SELFPAY | END 2024-08-10 14:00 | disposition home or self-care (01) | LOC: HO.LAB 13:59 | PROVIDERS: Visit Provider Urology | DX: R10.9 Unspecified abdominal pain (principal); R32 Unspecified urinary incontinence; R93.89 Abnormal findings on diagnostic imaging of other specified body structures; N39.0 Urinary tract infection, site not specified | CPT/HCPCS: 51798; 81003; 87086; 99202 ==

== ENCOUNTER 2024-09-17 15:18 | Outpatient (AMB) | payer MEDICARE, OTHER, SELFPAY ==
--- NOTE | 2024-09-17 15:19 | MHC.OFFVIS ---
Intake Visit Reasons: 6w follow up/PVR Intake Note: Patient is present for 6W Antibiotic Allergy:SULFA Blood Thinner:NONE Director Of Operations Support Required: No Allergies morphine Allergy (Severe, Verified 09/17/24 15:22) Anaphylaxis ibuprofen Allergy (Mild, Verified 09/17/24 15:22) Stomach Upset Sulfa (Sulfonamide Antibiotics) Allergy (Mild, Verified 09/17/24 15:22) nausa cortizon Allergy (Mild, Uncoded 09/17/24 15:22) Flushing HPI Comments Details: 09/17/24--Angelia is here for FU, she states she is still leaking even after completing the ceftin abx. She states sometimes the leakage is associated with urgency, and sometimes she doesn't know when she is leaking but her underwear is wet. Discussed trial of antimuscarinc and discussed how to do kegel exercises. Review of chart 08/10/24--Angelia is a 73-year-old female who was seen in the emergency room yesterday with complaints of right lower quadrant pain and nausea. Today she feels better but she still has a vague sensation of discomfort in the right lower quadrant. CTAP w/wo IV contrast-reported no acute findings, kidneys negative for stones or hydronephrosis. Subtle stranding adjacent to the anterior aspect of the bladder, nonspecific. The patient gives a history of about 6 weeks ago having right hip pain she was evaluated and told that there was bursitis. On Tuesday08/08/2024, she states she had severe right lower quadrant pain and had associated nausea and vomiting for most of the day into the following day that she presented to the ED. CT noted subtle findings that were nonspecific with some stranding around the bladder. Urinalysis negative for blood negative for leukocytes. The patient states that what is different regarding her urination is that for several weeks she has been getting urine leakage in has needed to wear a pad. It is unclear if her right sided pain is related to the urinary tract, as she has new symptoms of incontinence and there are subtle changes that may suggest cystitis I will empirically trial her on Ceftin 250 mg twice a day for 5 days and send her urine for culture. [facility] Medical History HTN (hypertension) Surgical History Hx of cholecystectomy Hx of hysterectomy Hx of knee surgery Family History Father Lung cancer Mother No problems noted. Social History Patient Tobacco Use Status: Never used Tobacco Review of Systems Const All systems reviewed & are unremarkable except as noted in HPI and below Reports no additional complaints Eyes Reports no additional complaints ENT Reports no additional complaints Card Reports no additional complaints Resp Reports no additional complaints GI Reports no additional complaints Reports as per HPI Musc Reports no additional complaints Skin/Breast Reports system reviewed and no additional complaints, except as documented Neuro Reports no additional complaints Psych Reports no additional complaints Endo Reports no additional complaints Aram/Lymph Reports no additional complaints Aller/Immun Reports no additional complaints Results AMB Urinalysis, Automated UA Leukoctes 15 [place]/uL Last Edit by RACHAEL Kaye on 09/17/24 15:29 UA Nitrite Last Edit by RACHAEL Kaye on 09/17/24 15:29 UA Urobilinogen 0.2 mg/dL Last Edit by RACHAEL Kaye on 09/17/24 15:29 UA Protein 15 mg/dL Last Edit by RACHAEL Kaye on 09/17/24 15:29 UA pH 5.5 Last Edit by RACHAEL Kaye on 09/17/24 15:29 UA Blood 10 [place]/uL Last Edit by RACHAEL Kaye on 09/17/24 15:29 UA Specific [place] 1.030 Last Edit by RACHAEL Kaye on 09/17/24 15:29 UA Ketone Negative Last Edit by RACHAEL Kaye on 09/17/24 15: UA Bilirubin 0 mg/dL Last Edit by RACHAEL Kaye on 09/17/24 15:29 UA Glucose 0 mg/dL Last Edit by RACHAEL Kaye on 09/17/24 15:29 Results Reviewed Results Reviewed: Laboratory Last Values Urine pH (Auto) 5.5 09/17/24 15:28 Specific [place] (Auto) 1.030 09/17/24 15:28 Urine Protein (Auto) 15 mg/dL 09/17/24 15:28 Glucose (UA)(Auto) 0 mg/dL 09/17/24 15:28 Urine Ketones (Auto) Negative 09/17/24 15:28 Urine Blood (Auto) 10 [place]/uL 09/17/24 15:28 Urine Bilirubin (Auto) 0 mg/dL 09/17/24 15:28 Urine Urobilinogen (Auto) 0.2 mg/dL 09/17/24 15:28 Leukocyte Esterase (Auto) 15 [place]/uL 09/17/24 15:28 Collected: 08/10/24 Status: COMP Req#: [id number] Received: 08/10/24 Source: [facility] Sp Desc: Clean Cat Subm Dr: Mahesh Fine MD Ordered: Urine Culture Procedure Result Verified Urine Culture Final 08/12/24 Report Result 50,000 to 100,000 cfu/ml Mixed bacterial callie characteristic of urogenital contamination. Date of Service: 08/09/24 CT ABDOMEN AND PELVIS WITH CONTRAST CLINICAL INFORMATION: Right lower quadrant pain, nausea/vomiting COMPARISON: None available. TECHNIQUE: Multidetector volumetric images were obtained from the superior aspect of the liver through the pubic symphysis following administration 85 mL of Omnipaque 350 intravenous contrast. Sagittal and coronal reformatted images were obtained on the technologist's workstation. Oral contrast: No This CT examination was performed using dose optimization techniques as appropriate, variously including the following: *Automated exposure control *Adjustment of mA and/or kV according to patient size (this includes techniques or standardized protocols for targeted exams where dose is matched to indication/reason for exam; i.e. extremities or head) *Use of iterative reconstruction technique DLP: 842 mGy-cm FINDINGS: Limited evaluation in some regions due to motion artifact. LUNG BASES: The visualized lung bases are unremarkable. LIVER, GALLBLADDER, AND BILIARY TREE: The liver is normal in size, shape, and attenuation. No focal hepatic lesion or significant biliary ductal dilatation is present. Patient is status post cholecystectomy. PANCREAS: Unremarkable. SPLEEN: Unremarkable. ADRENAL GLANDS: Unremarkable. KIDNEYS AND URETERS: Bilateral nephrograms are symmetric. No hydronephrosis or obstructing calculus identified. Small hypodensity in the posterior right kidney favors a cyst; no follow-up recommended. BLADDER: Minimally distended and suboptimally assessed. Subtle stranding is noted adjacent to the anterior aspect of the bladder. GASTROINTESTINAL TRACT: No evidence of bowel obstruction or significant wall thickening. Sigmoid colon diverticulosis is noted. The appendix is unremarkable. No free fluid or free air is seen. ABDOMINAL WALL: No significant hernia is appreciated. LYMPH NODES: Normal. VASCULAR: Mild scattered atherosclerotic calcifications. PELVIC VISCERA: Patient is status post hysterectomy. OSSEOUS STRUCTURES: Disc space narrowing and endplate osteophytes, most prominently in the lower thoracic spine. IMPRESSION: 1. Limited evaluation in some regions due to motion artifact. Subtle stranding adjacent to the anterior aspect of the bladder, which could reflect cystitis in the proper clinical setting. Correlation with urinalysis is recommended. 2. Normal appendix. 3. Sigmoid colon diverticulosis without diverticulitis. Assessment & Plan Assessment & Plan (1) Urinary incontinence: Code(s): R32 - Unspecified urinary incontinence Category: Medical Plan Gemtesa 75 mg daily. Kegels bid Telehealth fu in 10-12 weeks Orders: Orders AMB Urinalysis Automated Today Z13.9 - Encounter for screening, unspecified Medications: New vibegron (Gemtesa) 75 mg PO DAILY 90 tabs 3RF Patient Instructions: The patient had an opportunity to ask questions regarding treatment plan. The patient expressed understanding and agreement with the above treatment plan. The patient is aware they should contact our office by phone for worsening of their current condition or the appearance of new symptoms. Compliance is encouraged with any medications and followup testing that is ordered. It is a privilege to be allowed the opportunity to participate in the urologic care of your patient. If you have any questions or concerns regarding treatment for the above conditions please do not hesitate to contact me. The office telephone contact is [phone]. This note is constructed in part using voice recognition software. While every effort has been made to ensure accuracy medical transcription errors may have been included. Yours sincerely, Mahesh Fine MD Coding Level of Care Code Est Pt Level 4 (49887) Diagnoses Urinary incontinence R32
== END 2024-09-17 15:56 | disposition home or self-care (01) ==
LOC: HO.HUSH 15:19
PROVIDERS: Visit Provider Urology
DX: R32 Unspecified urinary incontinence (principal); Z13.9 Encounter for screening, unspecified
CPT/HCPCS: 99214

== ENCOUNTER → 2024-09-17 15:18 | Outpatient (BNVA) | payer MEDICARE, OTHER, SELFPAY | PROVIDERS: Visit Provider Urology | DX: R32 Unspecified urinary incontinence (principal) | CPT/HCPCS: 81003; 99212 ==

== ENCOUNTER 2024-11-26 08:30 | Outpatient (AMB) | payer MEDICARE, OTHER, SELFPAY ==
--- NOTE | 2024-11-25 17:13 | MHC.OFFVIS ---
Intake Visit Reasons: 10w/med review Intake Note: Patient is Present for Telephone Follow Up For Med Review Urology Med: Gemtesa Antibiotic Allergy: Sulfa Antibiotics Blood Thinner: None Last PVR: 22ML Gemtesa was prescribed at last OF, Patient states she does feel improvement on Gemtesa states that it is working well Enterprise Account Manager Required: No Accompanied by: Self / Same As Patient Allergies morphine Allergy (Severe, Verified 11/26/24 08:32) Anaphylaxis ibuprofen Allergy (Mild, Verified 11/26/24 08:32) Stomach Upset Sulfa (Sulfonamide Antibiotics) Allergy (Mild, Verified 11/26/24 08:32) nausa cortizon Allergy (Mild, Uncoded 11/26/24 08:32) Flushing Medication List - Last Reconciled 11/26/24 by Mahesh Fine MD cetirizine (Zyrtec) 10 mg PO DAILY PRN cholecalciferol (vitamin D3) 50 mcg PO DAILY famotidine 40 mg PO BID ketorolac 10 mg PO TID PRN lisinopril 20 mg PO DAILY mecobalamin (vitamin B12) mcg PO metoprolol succinate ER 100 mg PO DAILY ybaawbti-wvlyolw-rxfs-lutein tabs PO ondansetron HCl 4 mg PO Q6H PRN rosuvastatin 20 mg PO DAILY vibegron (Gemtesa) 75 mg PO DAILY HPI Comments Details: 11/26/24-Telehealth FU- LV-09/17/24--started Gemtesa 75 mg daily. Discussed Kegels bid. Angelia states that she is doing the Kegel exercises and using the Gemtesa. She has seen an improvement in her bladder control. I will continue Gemtesa daily. Follow-up in 9 months. Review of chart 09/17/24--Angelia is here for FU, she states she is still leaking even after completing the ceftin abx. She states sometimes the leakage is associated with urgency, and sometimes she doesn't know when she is leaking but her underwear is wet. Discussed trial of antimuscarinc and discussed how to do kegel exercises. 08/10/24--Angelia is a 73-year-old female who was seen in the emergency room yesterday with complaints of right lower quadrant pain and nausea. Today she feels better but she still has a vague sensation of discomfort in the right lower quadrant. CTAP w/wo IV contrast-reported no acute findings, kidneys negative for stones or hydronephrosis. Subtle stranding adjacent to the anterior aspect of the bladder, nonspecific. The patient gives a history of about 6 weeks ago having right hip pain she was evaluated and told that there was bursitis. On Tuesday08/08/2024, she states she had severe right lower quadrant pain and had associated nausea and vomiting for most of the day into the following day that she presented to the ED. CT noted subtle findings that were nonspecific with some stranding around the bladder. Urinalysis negative for blood negative for leukocytes. The patient states that what is different regarding her urination is that for several weeks she has been getting urine leakage in has needed to wear a pad. It is unclear if her right sided pain is related to the urinary tract, as she has new symptoms of incontinence and there are subtle changes that may suggest cystitis I will empirically trial her on Ceftin 250 mg twice a day for 5 days and send her urine for culture. FORMERLY [facility], [facility] Medical History HTN (hypertension) Surgical History Hx of cholecystectomy Hx of hysterectomy Hx of knee surgery Family History Father Lung cancer Mother No problems noted. Social History Patient Tobacco Use Status: Never used Tobacco Review of Systems Const All systems reviewed & are unremarkable except as noted in HPI and below Reports no additional complaints Eyes Reports no additional complaints ENT Reports no additional complaints Card Reports no additional complaints Resp Reports no additional complaints GI Reports no additional complaints Reports as per HPI Musc Reports no additional complaints Skin/Breast Reports system reviewed and no additional complaints, except as documented Neuro Reports no additional complaints Psych Reports no additional complaints Endo Reports no additional complaints Aram/Lymph Reports no additional complaints Aller/Immun Reports no additional complaints Telehealth Telehealth Telehealth Platform: Doximity Location of provider rendering services: practice address Location of patient: address on file Patient Identification confirmed using: Name, : Yes Telehealth method: video Patient verbally consented to treatment: Yes Patient verbally consented to billing insurance company: Yes Patient informed of any privacy concerns related to visit: Yes Results Reviewed Results Reviewed: Collected: 08/10/24 Status: COMP Req#: [id number] Received: 08/10/24 Source: [facility] Desc: Clean Cat Subm Dr: Mahesh Fine MD Ordered: Urine Culture Procedure Result Verified Urine Culture Final 08/12/24 Report Result 50,000 to 100,000 cfu/ml Mixed bacterial callie characteristic of urogenital contamination. Date of Service: 08/09/24 CT ABDOMEN AND PELVIS WITH CONTRAST CLINICAL INFORMATION: Right lower quadrant pain, nausea/vomiting COMPARISON: None available. TECHNIQUE: Multidetector volumetric images were obtained from the superior aspect of the liver through the pubic symphysis following administration 85 mL of Omnipaque 350 intravenous contrast. Sagittal and coronal reformatted images were obtained on the technologist's workstation. Oral contrast: No This CT examination was performed using dose optimization techniques as appropriate, variously including the following: *Automated exposure control *Adjustment of mA and/or kV according to patient size (this includes techniques or standardized protocols for targeted exams where dose is matched to indication/reason for exam; i.e. extremities or head) *Use of iterative reconstruction technique DLP: 842 mGy-cm FINDINGS: Limited evaluation in some regions due to motion artifact. LUNG BASES: The visualized lung bases are unremarkable. LIVER, GALLBLADDER, AND BILIARY TREE: The liver is normal in size, shape, and attenuation. No focal hepatic lesion or significant biliary ductal dilatation is present. Patient is status post cholecystectomy. PANCREAS: Unremarkable. SPLEEN: Unremarkable. ADRENAL GLANDS: Unremarkable. KIDNEYS AND URETERS: Bilateral nephrograms are symmetric. No hydronephrosis or obstructing calculus identified. Small hypodensity in the posterior right kidney favors a cyst; no follow-up recommended. BLADDER: Minimally distended and suboptimally assessed. Subtle stranding is noted adjacent to the anterior aspect of the bladder. GASTROINTESTINAL TRACT: No evidence of bowel obstruction or significant wall thickening. Sigmoid colon diverticulosis is noted. The appendix is unremarkable. No free fluid or free air is seen. ABDOMINAL WALL: No significant hernia is appreciated. LYMPH NODES: Normal. VASCULAR: Mild scattered atherosclerotic calcifications. PELVIC VISCERA: Patient is status post hysterectomy. OSSEOUS STRUCTURES: Disc space narrowing and endplate osteophytes, most prominently in the lower thoracic spine. IMPRESSION: 1. Limited evaluation in some regions due to motion artifact. Subtle stranding adjacent to the anterior aspect of the bladder, which could reflect cystitis in the proper clinical setting. Correlation with urinalysis is recommended. 2. Normal appendix. 3. Sigmoid colon diverticulosis without diverticulitis. Assessment & Plan Assessment & Plan (1) Urinary incontinence: Code(s): R32 - Unspecified urinary incontinence Category: Medical Plan Gemtesa 75 mg daily. Continue behavioral modification. Kegels bid Follow-up in 9 months Patient Instructions: The patient had an opportunity to ask questions regarding treatment plan. The patient expressed understanding and agreement with the above treatment plan. The patient is aware they should contact our office by phone for worsening of their current condition or the appearance of new symptoms. Compliance is encouraged with any medications and followup testing that is ordered. It is a privilege to be allowed the opportunity to participate in the urologic care of your patient. If you have any questions or concerns regarding treatment for the above conditions please do not hesitate to contact me. The office telephone contact is [phone]. This note is constructed in part using voice recognition software. While every effort has been made to ensure accuracy manager reading errors may have been included. Yours sincerely, Mahesh Fine MD Coding Level of Care Code Tele Est Pt Level 3 (10766) Diagnoses Urinary incontinence R32
--- OUTSIDE RECORDS SUMMARY | 2024-11-26 08:45 | XMS_ITS ---
Author Organization [facility], Address [address] [place] [address] Care Team Providers Care Paste Up Artist Apprentice Name Role Phone Keith Bowling [phone] ALLERGIES, ADVERSE REACTIONS, ALERTS Substance Code Code System Type Reaction Severity Status Start Date End Date Sulfa (Sulfonamide Antibiotics) Unknown Drug allergy () 1 ibuprofen 5640 RxNorm Drug allergy () 0 No known non-drug allergies RxNorm Other substance rob rgy () 1 Peppermint RxNorm Food allergy () 0 morphine 7052 RxNorm Drug allergy () 1 morphine 7052 RxNorm Drug allergy () 0 ibuprofen 5640 RxNorm Drug allergy () 1 Sulfa (Sulfonamide Antibiotics) RxNorm Drug allergy () 0 MEDICATIONS Medication Code Code System Start Date Stop Date Route Dosage Directions Fill Instructions famotidine RxNorm 04/02/20 22 lisinopril RxNorm 04/02/20 22 erythromycin 923959 RxNorm 024 ophthalmic (eye) 1 Augmentin 810292 RxNorm 3 oral 1 rosuvastatin RxNorm 04/02/20 22 Paxlovid 6405123 RxNorm 06/14/20 23 oral 3 PROBLEMS Problem Name Code Code System Start Date End Date Stat us Contact w and exposure to oth viral communicable diseases (Z20.828) [facility] 11/26/2020 Inactive Contact with and (suspected) exposure to COVID-19 (Z20.822) [facility] 11/28/2020 Inactive COVID-19, confirmed by laboratory testing 440905840 [facility] 04/02/2022 Inactive Hypertension 91929901 [facility] 04/02/2022 Active Hyperlipidemia 84834386 [facility] 04/02/2022 Activ e GERD 811919204 [facility] 04/02/2022 Active Influenza due to other identified influenza virus with other respiratory manifestations 908303337 [facility] 04/02/2022 Inactive Lyme disease, unspecified 68309698 [facility] 05/19/2023 Active COVID-19 583126252 [facility] 06/14/2023 Inactive Other specified disorders of nose and nasal sinuses 703032399 [facility] 10/05/2023 Ac tive Unspecified conjunctivitis 59904645217076122 [facility] 11/03 Active ENCOUNTERS Encounter Diagnosis Code Code System Date Stat us Unspecified conjunctivitis 60907291279087573 [facility] Active IMMUNIZATIONS * None VITAL SIGNS Code Code System Vitals Name Date Value and Un its 8462-4 [facility] Blood Pressure-Diastolic 11/03/2024 82 mmHg 8480-6 [facility] Blood Pressure-Systolic 11/03/2024 1 40 mmHg 8867-4 [facility] Heart Rate 11/03/2024 81 /min 9279-1 [facility] Respiratory Rate 11/03/2024 18 /min 8310-5 [facility] Body Temperature 11/03/2024 98.5 F 73113-3 inc Oxygen Saturation 11/03/2024 98 % SOCIAL HISTORY * None PROCEDURES * None MEDICAL EQUIPMENT * Patient has no history of implantable devices ASSESSMENT Assessment You were evaluated for eye r edness and discharge.Your history and exam is consistent with conjunctivitis.Clean hands frequently.If you touch your eyes, wash your hands immediately to prevent spread.Do not share towels or linens with other family members.Change linens frequently to prevent re-infection.Use the antibiotic as prescribed.Return immediately for increased eye pain, changes in vision, difficulty with vision, or any other new, concerning symptoms.Please see an account executive healthcare in follow-up within 24-48 hours if your symptoms are not significantly improved. TREATMENT PLAN Type Description Date MEDICATION Take 5 mg/gram (0.5 %) ointment 11/03/2024 APPOINTMENT If not feeling deyvi r in 3 day(s), please see your primary care physician. If you do not have a primary care physician, please return to this clinic. 11/03/2024 Lab Tests None GOALS * None HEALTH CONCERNS * No Health Concerns FUNCTIONAL AND COGNITIVE STATUS * None CONSULTATION NOTES * None DISCHARGE SUMMARY NOTES * None HISTORY AND PHYSICAL NOTES * Reason for visit - Illness Patient: REMI TEE Sex: F (ID# [id number]) Date of : 1950 (74 years) Visit on 11/03/2024 (Log# [id number]) Historian: Self Triage Notes: crusty in the morning History of Present Illness: 74-year-old presenting for evaluation of left eye irritation, drainage. Symptom onset over the pastfew days. Woke up this morning and her left eyelid was crusted shut. No contact lens use. No photosensitivity, blurred or double vision Complaint: The patient presents with a chief complaint of itchy eyes of the left eye since 3 days ago. Review of Systems: The patient complains of the following recent symptoms: Allergy/Immun.: eye discharge itchy eyes: See HPI Allergies: morphine: Drug allergy. Sulfa (Sulfonamide Antibiotics): Drug allergy. ibuprofen: Drug allergy. Peppermint: Food allergy. Medications: lisinopril: lisinopril; 0 refill(s); rosuvastatin: rosuvastatin; 0 refill(s); famotidine: famotidine; 0 refill(s); Problem List: Hypertension (status Active) Hyperlipidemia (status Active) GERD (status Active) Lyme disease, unspecified (status Active) Other specified disorders of nose and nasal sinuses (status Active) Surgeries: Knee Replacement: - (Not Sure of Date) Hysterectomy, Complete: - (Not Sure of Date) Gallbladder/Cholecystectomy: - (Not Sure of Date) Social History: Tobacco Use: denies Alcohol: denies Street / Unprescribed Drugs: denies Family History: patient specifies no conditions Vitals: 03:15 PM (11/03/2024)Temperature: 98.5 ?F, Pulse: 81 BPM, BP: 140/82, Respirations: 18/min, O2 Saturation: 98%, O2 Delivery: RAFirst entered 11/03/2024 15:15 by Portia Shepherd Physical Exam: The following exam elements were documented to be normal: Psychiatric: oriented and alert. General: Well-appearing, no acute distress Head: Normocephalic/atraumatic. Eyes: ? Pupils equally round and reactive to light ? EOMs intact ? Minor left bulbar conjunctival injection, scant purulent drainage, no photosensitivity, right eyeis normal -Left TM is normal Neuro: Awake and alert Diagnoses: Unspecified conjunctivitis (H10.9) Medication Orders: Prescribed: erythromycin 5 mg/gram (0.5 %) ointment; Take 1 Applicator (ophthalmic (eye)) 4 times per day for 7 Days; Total Qty: 28 (twenty-eight) Gram; 0 refill(s); Substitutions allowed; Earliest Fill Date: 11/03/2024ePrescribed at 3:51 PM on 11/03/2024 by ALETHA Bolanos CPrescription sent to[id number] (P: [phone] F: [phone]) [address] [place] [address], [address] Plan: If not feeling better in 3 day(s), please see your primary care physician. If you do not have a primary care physician, please return to this clinic. You were evaluated for eye redness and discharge. Your history and exam is consistent with conjunctivitis. Clean hands frequently. If you touch your eyes, wash your hands immediately to prevent spread. Do not share towels or linens with other family members. Change linens frequently to prevent re-infection. Use the antibiotic as prescribed. Return immediately for increased eye pain, changes in vision, difficulty with vision, or any other new, concerning symptoms. Please see an account executive healthcare in follow-up within 24-48 hours if your symptoms are not significantly improved. Visit discharged at 11/03/2024 3:52:00 PM by Keith Bowling PA-C Signed electronically by Keith Bowling PA-C on 11/03/2024 3:52:00 PM IMAGING NOTES * None LABORATORY REPORT NARRATIVE NOTES * None PATHOLOGY REPORT NARRATIVE NOTES * None PROGRESS NOTES * None
--- OUTSIDE RECORDS SUMMARY | 2024-11-26 08:46 | XMS_ITS ---
Author Organization [facility], Address [address] [place] [address] Care Team Providers Care Client Program Manager Name Role Phone Christiano Toribio Unavailable [phone] ALLERGIES, ADVERSE REACTIONS, ALERTS Substance Code Code System Type Reaction Severity Status Start Date End Date No known non-drug allergies RxNorm Other substance rob rgy () 1 Peppermint RxNorm Food allergy () 0 Sulfa (Sulfonamide Antibiotics) Unknown Drug allergy () 1 ibuprofen 5640 RxNorm Drug allergy () 0 morphine 7052 RxNorm Drug allergy () 1 morphine 7052 RxNorm Drug allergy () 0 ibuprofen 5640 RxNorm Drug allergy () 1 Sulfa (Sulfonamide Antibiotics) RxNorm Drug allergy () 0 MEDICATIONS Medication Code Code System Start Date Stop Date Route Dosage Directions Fill Instructions famotidine RxNorm 04/02/20 22 lisinopril RxNorm 04/02/20 22 erythromycin 288875 RxNorm 024 ophthalmic (eye) 1 Augmentin 312315 RxNorm 3 oral 1 rosuvastatin RxNorm 04/02/20 22 Paxlovid 2490466 RxNorm 06/14/20 23 oral 3 PROBLEMS Problem Name Code Code System Start Date End Date Stat us Contact w and exposure to oth viral communicable diseases (Z20.828) [facility] 11/26/2020 Inactive Contact with and (suspected) exposure to COVID-19 (Z20.822) [facility] 11/28/2020 Inactive COVID-19, confirmed by laboratory testing 860138054 [facility] 04/02/2022 Inactive Hypertension 39167947 [facility] 04/02/2022 Active Hyperlipidemia 06871695 [facility] 04/02/2022 Activ e GERD 422645692 [facility] 04/02/2022 Active Influenza due to other identified influenza virus with other respiratory manifestations 510361719 [facility] 04/02/2022 Inactive Lyme disease, unspecified 25961663 [facility] 05/19/2023 Active COVID-19 860014831 [facility] 06/14/2023 Inactive Other specified disorders of nose and nasal sinuses 771712405 [facility] 10/05/2023 Ac tive Unspecified conjunctivitis 41090524817842029 [facility] 11/03 Active ENCOUNTERS Encounter Diagnosis Code Code System Date Stat us Lyme disease, unspecified 27710000 [facility] 05/19/2023 Active Dysuria 46662302 [facility] 05/28/2023 Active IMMUNIZATIONS * None VITAL SIGNS Code Code System Vitals Name Date Value and Un its 8462-4 [facility] Blood Pressure-Diastolic 05/19/2023 75 mmHg 8480-6 [facility] Blood Pressure-Systolic 05/19/2023 1 44 mmHg 8867-4 [facility] Heart Rate 05/19/2023 100 /min 9279-1 [facility] Respiratory Rate 05/19/2023 16 /min 8310-5 [facility] Body Temperature 05/19/2023 98.6 F 34195-4 [facility] Oxygen Saturation 05/19/2023 97 % SOCIAL HISTORY * None PROCEDURES * None RESULTS Test Code Code System Description Result Value Date Ref erence Range [facility] Glucose Negative 05/19/2023 [facility] Bilirubin Negative 05/19/2023 [facility] Ketone Negative 05/19/2023 [facility] Specific Garner 1.35234 05/19/2023 [facility] Blood Trace-intact 05/19/2023 Lo[facility] pH 5.51189 05/19/2023 [facility] Protein Negative 05/19/2023 [facility] Urobilinogen 0.24029 E.U./dL 05/19/2023 [facility] Nitrite Negative 05/19/2023 [facility] Leukocytes 1.17472 05/19/2023 [facility] Color Yellow 05/19/2023 [facility] Clarity Clear 05/19/2023 [facility] IgM positive 05/19/2023 negative [facility] IgG negative 05/19/2023 negative 630-4 [facility] CULTURE, URINE, ROUTINE SEE NOTE 05/28/2023 MEDICAL EQUIPMENT * Patient has no history of implantable devices ASSESSMENT Assessment You have lyme diseasePlease take the oral antibiotic as prescribedAs discussed, be sure to take this medication with a full glass of water and remain upright for at least 45 minutes after.You must protect your skin from sun exposure while on this medication. Please try and wear long sleeves/pants when able, a hat, and sunblock while outsideThe symptoms should improve within 48 hours of starting the antibioticIf you feel after 48-72 hours your symptoms are not improving, you are having fevers, or develop any other new, concerning symptoms please be re-evaluated. TREATMENT PLAN Type Description Date MEDICATION Take 100 mg tablet 05/19/2023 MEDICATION Take 100 mg capsule 05/27/2023 APPOINTMENT If not feeling deyvi r in 3 day(s), please see your primary care physician. If you do not have a primary care physician, please return to this clinic. 05/19/2023 Labs Tests Test Name Code Code System Date [place] [address] CPT Urinalysis, automated, without microscopy 15764 CPT 05/19/2023 CULTURE, URINE, ROUTINE 15807;52236 CPT 2022 GOALS * None HEALTH CONCERNS * No Health Concerns FUNCTIONAL AND COGNITIVE STATUS * None CONSULTATION NOTES * None DISCHARGE SUMMARY NOTES * None HISTORY AND PHYSICAL NOTES * Reason for visit - Illness IMAGING NOTES * None LABORATORY REPORT NARRATIVE NOTES * None PATHOLOGY REPORT NARRATIVE NOTES * None PROGRESS NOTES * None
--- OUTSIDE RECORDS SUMMARY | 2024-11-26 08:47 | XMS_ITS ---
Author Organization [facility], Address [address] [place] [address] Care Team Providers Care Hand Tile Maker Name Role Phone Asa Tripathi Unavailable [phone] ALLERGIES, ADVERSE REACTIONS, ALERTS Substance Code Code System Type Reaction Severity Status Start Date End Date Sulfa (Sulfonamide Antibiotics) Unknown Drug allergy () 1 ibuprofen 5640 RxNorm Drug allergy () 0 ibuprofen 5640 RxNorm Drug allergy () 1 Sulfa (Sulfonamide Antibiotics) RxNorm Drug allergy () 0 morphine 7052 RxNorm Drug allergy () 1 morphine 7052 RxNorm Drug allergy () 0 No known non-drug allergies RxNorm Other substance rob rgy () 1 Peppermint RxNorm Food allergy () 0 MEDICATIONS Medication Code Code System Start Date Stop Date Route Dosage Directions Fill Instructions famotidine RxNorm 04/02/20 22 lisinopril RxNorm 04/02/20 22 erythromycin 296344 RxNorm 024 ophthalmic (eye) 1 Augmentin 471341 RxNorm 3 oral 1 rosuvastatin RxNorm 04/02/20 22 Paxlovid 5703055 RxNorm 06/14/20 23 oral 3 PROBLEMS Problem Name Code Code System Start Date End Date Stat us Contact w and exposure to oth viral communicable diseases (Z20.828) [facility] 11/26/2020 Inactive Contact with and (suspected) exposure to COVID-19 (Z20.822) [facility] 11/28/2020 Inactive COVID-19, confirmed by laboratory testing 617575556 [facility] 04/02/2022 Inactive Hypertension 24764374 [facility] 04/02/2022 Active Hyperlipidemia 11645866 [facility] 04/02/2022 Activ e GERD 757308562 [facility] 04/02/2022 Active Influenza due to other identified influenza virus with other respiratory manifestations 124692780 [facility] 04/02/2022 Inactive Lyme disease, unspecified 04047820 [facility] 05/19/2023 Active COVID-19 089343114 [facility] 06/14/2023 Inactive Other specified disorders of nose and nasal sinuses 472049239 [facility] 10/05/2023 Ac tive Unspecified conjunctivitis 69441033286253080 [facility] 11/03 Active ENCOUNTERS Encounter Diagnosis Code Code System Date Stat us Other specified disorders of nose and nasal sinuses 875752218 [facility] 10/05/2023 Active IMMUNIZATIONS * None VITAL SIGNS Code Code System Vitals Name Date Value and Un its 8462-4 [facility] Blood Pressure-Diastolic 10/05/2023 87 mmHg 8480-6 [facility] Blood Pressure-Systolic 10/05/2023 1 35 mmHg 8867-4 [facility] Heart Rate 10/05/2023 115 /min 9279-1 [facility] Respiratory Rate 10/05/2023 18 /min 8310-5 inc Body Temperature 10/05/2023 99.0 F 23585-2 inc Oxygen Saturation 10/05/2023 96 % SOCIAL HISTORY * None PROCEDURES * None MEDICAL EQUIPMENT * Patient has no history of implantable devices ASSESSMENT * None TREATMENT PLAN Type Description Date MEDICATION Take 500-125 mg tablet ORDERS You should follow-up with your dentist if symptoms do not improve by Tuesday, October 10 10/05/2023 APPOINTMENT If not feeling deyvi r in 3 day(s), please see your primary care physician. If you do not have a primary care physician, please return to this clinic. 10/05/2023 Lab Tests None GOALS * None HEALTH [...]
--- OUTSIDE RECORDS SUMMARY | 2024-11-26 08:47 | XMS_ITS ---
Author Organization [facility], Address [address] [place] [address] Care Team Providers Care Produce Specialist Name Role Phone Keith Bowling [phone] ALLERGIES, ADVERSE REACTIONS, ALERTS Substance Code Code System Type Reaction Severity Status Start Date End Date No known non-drug allergies RxNorm Other substance rob rgy () 1 Peppermint RxNorm Food allergy () 0 morphine 7052 RxNorm Drug allergy () 1 morphine 7052 RxNorm Drug allergy () 0 ibuprofen 5640 RxNorm Drug allergy () 1 Sulfa (Sulfonamide Antibiotics) RxNorm Drug allergy () 0 Sulfa (Sulfonamide Antibiotics) Unknown Drug allergy () 1 ibuprofen 5640 RxNorm Drug allergy () 0 MEDICATIONS Medication Code Code System Start Date Stop Date Route Dosage Directions Fill Instructions famotidine RxNorm 04/02/20 22 lisinopril RxNorm 04/02/20 22 erythromycin 935238 RxNorm 024 ophthalmic (eye) 1 Augmentin 130735 RxNorm 3 oral 1 rosuvastatin RxNorm 04/02/20 22 Paxlovid 1609371 RxNorm 06/14/20 23 oral 3 PROBLEMS Problem Name Code Code System Start Date End Date Stat us Contact w and exposure to oth viral communicable diseases (Z20.828) [facility] 11/26/2020 Inactive Contact with and (suspected) exposure to COVID-19 (Z20.822) [facility] 11/28/2020 Inactive COVID-19, confirmed by laboratory testing 724866616 [facility] 04/02/2022 Inactive Hypertension 15936539 [facility] 04/02/2022 Active Hyperlipidemia 84840447 [facility] 04/02/2022 Activ e GERD 339604480 [facility] 04/02/2022 Active Influenza due to other identified influenza virus with other respiratory manifestations 085366401 [facility] 04/02/2022 Inactive Lyme disease, unspecified 29324925 [facility] 05/19/2023 Active COVID-19 471238157 [facility] 06/14/2023 Inactive Other specified disorders of nose and nasal sinuses 243279869 [facility] 10/05/2023 Ac tive Unspecified conjunctivitis 06243867478862210 [facility] 11/03 Active ENCOUNTERS Encounter Diagnosis Code Code System Date Stat COVID-19 385445521 [facility] 06/14/2023 Active IMMUNIZATIONS * None VITAL SIGNS Code Code System Vitals Name Date Value and Un its 8462-4 [facility] Blood Pressure-Diastolic 06/14/2023 85 mmHg 8480-6 [facility] Blood Pressure-Systolic 06/14/2023 1 41 mmHg 8867-4 [facility] Heart Rate 06/14/2023 110 /min 9279-1 [facility] Respiratory Rate 06/14/2023 18 /min 8310-5 [facility] Body Temperature 06/14/2023 99.0 F 48844-4 [facility] Oxygen Saturation 06/14/2023 95 % SOCIAL HISTORY * None PROCEDURES * None RESULTS Test Code Code System Description Result Value Date Ref erence Range [facility] SARS-CoV-2 POSITIVE 06/14/2023 [facility] Flu A NEGATIVE 06/14/2023 [facility] Flu B NEGATIVE 06/14/2023 [facility] RSV NEGATIVE 06/14/2023 MEDICAL EQUIPMENT * Patient has no history of implantable devices ASSESSMENT Assessment You may stop your cholestero l medicine for 2 weeks.You have [id number] isolate as discussed. The guidelines can also be found below. You may also visit the CDCs website to obtain further information if needed.Take Tylenol and/or Motrin for the fever/muscle aches.Drink plenty of fluids.If you develop any worsening symptoms, trouble breathing, chest pain, or any other new, concerning symptoms please go to the ERCDC guidelines for isolation:-Isolate for at least 5 days from symptom onset. Please note that the first day of illness is Day 0. - If you have no symptoms or your symptoms are resolving after 5 days you can leave your house, however, you must continue to wear a mask at all times when around others for an additional 5 days (through day 10 of illness). You should avoid high risk individuals. Avoid restaurants or other places where you would be required to take down your mask, which may result in you exposing others. - If you initially have no symptoms but begin feeling sick within 10 days of your positive result you must use the day of symptom onset as your new Day 0.- If you have a fever you must continue to stay home until your fever is resolved for at least 24 hours without the use of tylenol and/or motrin.-Do not go to places where you are unable to wear a mask, such as restaurants and some gyms, and avoid eating around others at home/school/work until after 10 days of illness.- Loss of sense of taste/smell does not need to be improved/resolved to meet criteria to come out of isolation as this can last for a prolonged period of time. TREATMENT PLAN Type Description Date MEDICATION Take 300 mg (150 mg x 2)-100 mg Tablet, Dose Pack 06/14/2023 APPOINTMENT If not feeling deyvi r in 3 day(s), please see your primary care physician. If you do not have a primary care physician, please return to this clinic. 06/14/2023 Labs Tests Test Name Code Code System Date SARS-CoV-2, Flu A/B, RSV Mul tiplex Assay, Amplified Probe Molecular RT-PCR / NAAT 52006 [facility] 06/14/2023 GOALS * None HEALTH CONCERNS * No Health Concerns FUNCTIONAL AND COGNITIVE STATUS * None CONSULTATION NOTES * None DISCHARGE SUMMARY NOTES * None HISTORY AND PHYSICAL NOTES * Reason for visit - Illness IMAGING NOTES * None LABORATORY REPORT NARRATIVE NOTES * None PATHOLOGY REPORT NARRATIVE NOTES * None PROGRESS NOTES * None
== END 2024-11-26 09:26 | disposition home or self-care (01) ==
LOC: HO.HUSH 08:30
PROVIDERS: Visit Provider Urology
DX: R32 Unspecified urinary incontinence (principal)
CPT/HCPCS: 99213

== ENCOUNTER → 2024-11-26 08:30 | Outpatient (BNVA) | payer MEDICARE, OTHER, SELFPAY | PROVIDERS: Visit Provider Urology ==

== ENCOUNTER 2025-06-17 13:30 | Outpatient (AMB) | payer MEDICARE, OTHER, SELFPAY ==
[2025-06-17 13:34] VITALS: BP 120/76; PULSE 98; BMI 35.2
--- NOTE | 2025-06-17 13:34 | A.OFFVIS_ITS ---
Vital Signs 06/17/25 13:34 Height 5 ft 5 in Weight 211 lb 10.3 oz BMI 35.2 BP 120/76 Blood Pressure Location Lt brachial Position Sitting Pulse 98 Intake Visit Reasons: 1 yr f/up Intake Note: 1 year follow-up with ekg feeling good Legislative Director Required: No Allergies morphine Allergy (Severe, Verified 11/26/24 08:32) Anaphylaxis ibuprofen Allergy (Mild, Verified 11/26/24 08:32) Stomach Upset Sulfa (Sulfonamide Antibiotics) Allergy (Mild, Verified 11/26/24 08:32) nausa cortizon Allergy (Mild, Uncoded 11/26/24 08:32) Flushing Medication List - Last Reconciled 06/17/25 by Carlito Espitia MD cetirizine (Zyrtec) 10 mg PO DAILY PRN cholecalciferol (vitamin D3) 50 mcg PO DAILY famotidine 40 mg PO BID lisinopril 20 mg PO DAILY mecobalamin (vitamin B12) mcg PO metoprolol succinate ER 100 mg PO DAILY pcreltlx-rvrhsje-laiz-lutein tabs PO ondansetron HCl 4 mg PO Q6H PRN rosuvastatin 20 mg PO DAILY tirzepatide (Mounjaro) 2.5 mg subcut QWEEK vibegron (Gemtesa) 75 mg PO DAILY HPI Comments Details: Angelia comes for follow-up. She has not had any significant fast heart rate or elevated blood pressures. Blood pressures been very well controlled. She was recently diagnose elevated hemoglobin A1c and since then she has been on Mounjaro for the last month in his tolerated the therapy in his lost about 11 lb. She feels better. A blood pressures been ranging in systolic 115 range. She has not had any lightheadedness, syncope. No exertional chest pain or shortness of breath. Walks about half an hour every day. [facility] Medical History HTN (hypertension) Surgical History Hx of cholecystectomy Hx of hysterectomy Hx of knee surgery Family History Father Lung cancer Mother No problems noted. Social History Patient Tobacco Use Status: Never used Tobacco Review of Systems Const Denies chills, Denies fatigue, Denies fever(s), Denies frequent falls, Denies weakness, Denies weight gain and Denies weight loss ENT Denies dizziness Card Denies chest pain, Denies leg edema, Denies lightheadedness, Denies palpitation s, Denies dyspnea, Denies dyspnea on exertion, Denies orthopnea and Denies other (loss of consciousness) Resp Denies cough, Denies dyspnea and Denies dyspnea on exertion GI Denies hematochezia and Denies change in stool character Musc Denies abnormal gait, Denies muscle weakness, Denies numbness, Denies radiating pain into limb and Denies tingling Neuro Denies abnormal gait, Denies dizziness, Denies frequent falls, Denies numbness, Denies tingling and Denies weakness Endo Denies fatigue and Denies palpitations Physical Exam Vital Signs: Last Vital Signs Pulse 98 06/17/25 13:34 BP 120/76 06/17/25 13:34 BMI result Body Mass Index 35.2 Const General: cooperative, comfortable, no acute distress, alert, awake, Physically active and well groomed Nutritional Appearance: obese Orientation/consciousness: patient oriented x3 Limitations: no limitations HEENT Head: Yes normocephalic and Yes atraumatic Neck Neck: Yes trachea midline, Yes supple and Yes no JVD Resp Effort & Inspection: normal respiratory effort Auscultation: clear to auscultation bilaterally Cardio Jugular venous distension: no JVD Palpation: normal PMI Rate: tachycardic Rhythm: regular rhythm Heart sounds: S1 normal heart sound present, S2 normal heart sound present, no click, no gallops, no murmurs and no rubs GI Auscultation: normal bowel sounds Skin General skin exam: no rashes or lesions noted Neuro General: patient oriented x3 and no focal motor deficits Extrem General: Yes no clubbing, cyanosis or edema Office Procedures EKG Details: EKG shows normal sinus rhythm normal EKG 47767-Tyvplyetiioqiproe, Complete Assessment & Plan Assessment & Plan (1) HTN (hypertension): Code(s): I10 - Essential (primary) hypertension Category: Medical Plan: Hypertension which is currently well optimized. Continue current therapy. Importance of monitoring blood pressure regularly was discussed. Once she starts losing her weight she may started noticing low blood pressure which point time will start cutting down her lisinopril therapy. Importance of low-salt diet was discussed. Importance of continue based loss as well as lifestyle modification with increase exercise was discussed. She understands agrees. (2) Abdominal aortic atherosclerosis: Code(s): I70.0 - Atherosclerosis of aorta Plan: Abdominal aortic atherosclerosis noted incidentally on a CAT scan. This is not surprising given her multiple risk factors including hypertension now metabolic syndrome and elevated hemoglobin A1c. Agree with therapy with Mihai which has had her lose weight. This will help with the diabetes management with goal hemoglobin A1c less than 6%. Continue statin therapy with target goal LDL less than 70 mg/dL. Will follow up in the clinic in 2 years time, sooner p.r.n.. Thank you for allowing me to partake in her care Coding Level of Care Code Est Pt Level 4 (37896) Complex EM visit Add On G2211 Diagnoses HTN (hypertension) I10 Abdominal aortic atherosclerosis I70.0 CPT Codes EKG - CPT: 66081-Emifnyndremfnorxu, Complete ([id number])
--- OUTSIDE RECORDS SUMMARY | 2025-06-17 14:12 | XMS_ITS | Clinical Summary ---
Author Organization [facility] [address] [place] [address] [place] [address] Phone Care Team Providers Care Automatic Glove Former Name Role Phone Trudy Gordon MD Primary Care Provider [phone] Medications famotidine (PEPCID) 40 mg tabletIndication s:Gastroesophage al reflux disease without esophagitis TAKE 1 TABLET BY MOUTH TWICE A DAY DIRECTED 180 tablet 5 Active Surgical History Surgery Date Site/Laterality Comments OTHER SURGICAL HISTORY 1990 PROCEDURE: DE TOTAL ABDOMINAL HYSTERECT W/WO RMVL TUBE OVARY CHOLECYSTECTOMY 1984 PROCEDURE: DE CHOLECYSTECTOMY; COMMENT: open procedure KNEE SURGERY 2011 PROCEDURE: HISTORICAL KNEE SURGERY; COMMENT: left knee arthroscopy TOTAL KNEE ARTHROPLASTY 12/12/2018 Left PROCEDURE: HISTORICAL TOTAL KNEE REPLACE BREAST BIOPSY 12/17/2019 Left PROCEDURE: BX BREAST; PERC NEEDLE CORE W/IMAG GUID Medical History Medical History Date Comments Anxiety state, unspecified DX:An xiety state, unspecified History of other specified c onditions presenting hazards to health 6 yrs. 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 DX: Basal cell carcinoma, eyelid; COMMENT: lower left eyelid Family History Medical History Relation Name Comments Bladder Cancer Brother 1 No Known Problems Daughter 1 Cira Conte No Known Problems Daughter 2 Magalie Lung cancer Father Coronary artery disease Maternal Grandfather Diabetes Maternal Grandmother cad,pad Diabetes Mother HTN,hyperchol, dementia, ESRD Coronary artery disease Paternal Grandfather No Known Problems Son Cornelius Breast cancer Neg Hx Relation Name Status Comments Brother 1 (Age 55) Brother 2 Alive Brother 3 Alive Daughter 1 Cira Inés Alive Daughter 2 Magalie Alive Father (Age 62) lung cance r Maternal Grandfather Maternal Grandmother Mother (Age 89) Paternal Grandfather Paternal Grandmother Son Cornelius Alive Social History Tobacco Use Types Packs/Day Years Used Date Smoking Tobacco: Never Smokeless Tobacco: Never Alcohol Use Standard Drinks/Week Comments Yes 0 (1 standard drink = 0.6 oz pur e alcohol) Comments No Sex and Gender Information Value Date Recorded Sex Assigned at Not on file Legal Sex Female 10:38 AM EST Gender Identity Not on file Sexual Orientation Not on file Obstetrics History Para Term AB IAB SAB Ectopic Multiple Livin g Live Births 3 3 3 3 Date Outcome GA Total Labor Labor/2nd/3rd Weight Sex Type Anes PTL Gwen A1 A5 Name Clin Term Term Term Last Filed Vital Signs Vital Sign Reading Time Taken Comments Blood Pressure 136/82 09/02/2023 2:19 PM EDT Sit ting L Arm Pulse 98 09/02/2023 2:19 PM EDT Temperature - - Respiratory Rate - - Oxygen Saturation - - Inhaled Oxygen Concentration - - Weight 91.2 kg (201 lb) 09/02/2023 2:19 PM EDT Height 165.1 cm (5' 5 ) 09/02/2023 2:19 PM EDT Body Mass Index 33.45 09/02/2023 2:19 PM EDT Plan of Treatment Upcoming Encounters Date Type Department Care Team (Late st Contact Info) Description 02/21/2026 3:00 PM EDT Appointment Radiology Department [address] [address] Health Maintenance Due Date Last Done Comments Cholesterol Screening (Lipid Panel) 10/30/2022 Colorectal Cancer Screening: Colonoscopy 10/30/2022 Falls Risk Assessment 10/30/2022 Hepatitis C Screening 10/30/2022 Social Influencers of Health Screening 10/30/2022 Hypertension/CHF/CAD Annual BMP Blood Test 11/05/2022 Medicare Annual Wellness Visit 05/03/2024 05/03/2023 COVID-19 Vaccine ( season) 2024 10/09/2022, 08/31/2021, 02/07/2021, Additional history exists Depression Screening 11/21/2024 Influenza Vaccine (#1) 2025 , 09/02/2023, 09/18/2022, Additional history exists Breast Cancer Screening 02/20/2027 02/21/20 25, 01/07/2024, 08/01/2023, Additional history exists Osteoporosis Screening (Bone Density Screening) 08/08/2033 08/08/2023, 03/08/2018 DTaP,Tdap,and Td Vaccines (4 - Td or Tdap) 02/24/2034 02/25/2024, 10/31/2014, 11/12/2011 Pneumococcal Vaccine: 50+ Years Completed 10/09/2020, 03/05/2019 Zoster Vaccines Completed 12/16/2021, 10/12/2021 RSV Immunization Adult Patients Completed 10/31/2023 HIB Vaccines Aged Out No longer eligi ble based on patient's age to complete this topic HPV Vaccines Aged Out No longer eligi ble based on patient's age to complete this topic Hepatitis A Vaccines Aged Out No long er eligible based on patient's age to complete this topic Hepatitis B Vaccines Aged Out No long er eligible based on patient's age to complete this topic IPV Vaccines Aged Out No longer eligi ble based on patient's age to complete this topic MMR Vaccines Aged Out No longer eligi ble based on patient's age to complete this topic Meningococcal ACWY Vaccine Aged Out N o longer eligible based on patient's age to complete this topic Meningococcal B Vaccine Aged Out No l onger eligible based on patient's age to complete this topic RSV Immunization Patients Under 20 months Aged Out No longer eligible based on patient's age to complete this topic Varicella Vaccines Aged Out No longer eligible based on patient's age to complete this topic Procedures Procedure Name Priority Date/Time Associated Diagnosis Comments MG MAMMO DIGITAL SCREENING W HERNESTO BILAT Routine 02/20/2025 3:31 PM EDT Encounter for screening mammogram for breast cancer DXA BONE DENSITY STUDY 1+ SITS AXIAL SKEL Routine 08/08/2023 11:53 AM EDT Unspecified menopausal and perimenopausal disorder from Last 3 Months or Most Recently Relevant to Health Maintenance Results * MG Mammo Digital Screening w Hernesto bilat (02/20/2025 3:31 PM EDT) Anatomical Region Laterality Modality Breast Bilateral Mammography 02/21/2025 9:26 AM EDT Impressions 02/21/2025 9:30 AM EDT BILATERAL BREASTS: Benign, no evidence of malignancy. Normal interval follow-up is recommended in 12 months. BREAST DENSITY: B - There are scattered areas of fibroglandular density. BI-RADS CATEGORY: 2 - BENIGN RECOMMENDATION: Screening bilateral mammogram is recommended in 1 year. Mammo Location: [facility], [address] [place] [address], [id number], . -------- FINAL REPORT -------- Dictated By: Eliecer Banks Dictated Date: 02/21/2025 09:26 ET Assigned Physician: Eliecer Banks Reviewed and Electronically Signed By: Eliecer Banks Signed Date: 02/21/2025 09:30 ET Workstation ID: [id number] Transcribed By: Self Edit Transcribed Date: 02/21/2025 09:26 ET Narrative 02/21/2025 9:30 AM EDT STUDY: Bilateral screening mammography with tomosynthesis and CAD TECHNIQUE: Bilateral full-field digital screening mammography is obtained and read in conjunction with computer-aided detection. Tomosynthesis as well as 2-D C view imaging were obtained. COMPARISON: Comparison made to multiple prior, most recent August 07, 2024, and most remote October 11, 2015. RIGHT BREAST: No significant masses, suspicious calcifications or other abnormalities are seen. LEFT BREAST: Tissue marker from previous needle core biopsy. No significant masses, suspicious calcifications or other abnormalities are seen. Procedure Note Eliecer Banks MD - 02/21/2025 STUDY: Bilateral screening mammography with tomosynthesis and CAD TECHNIQUE: Bilateral full-field digital screening mammography is obtainedand read in conjunction with computer-aided detection. Tomosynthesis aswell as 2-D C view imaging were obtained. COMPARISON: Comparison made to multiple prior, most recent July, and most remote October 11, 2015. RIGHT BREAST: No significant masses, suspicious calcifications or otherabnormalities are seen. LEFT BREAST: Tissue marker from previous needle core biopsy. Nosignificant masses, suspicious calcifications or other abnormalities areseen. IMPRESSION: BILATERAL BREASTS: Benign, no evidence of malignancy. Normal intervalfollow-up is recommended in 12 months. BREAST DENSITY: B - There are scattered areas of fibroglandular density. BI-RADS CATEGORY: 2 - BENIGN RECOMMENDATION: Screening bilateral mammogram is recommended in 1 year. Mammo Location: [facility], [address] [place] [address], [id number], . -------- FINAL REPORT -------- Dictated By: Eliecer Banks Dictated Date: 02/21/2025 09:26 ET Assigned Physician: Eliecer Banks Reviewed and Electronically Signed By: Eliecer Banks Signed Date: 02/21/2025 09:30 ET Workstation ID: [id number] Transcribed By: Self Edit Transcribed Date: 02/21/2025 09:26 ET Trudy Gordon MD IMG BI PROCEDURES Final Res ult * DXA BONE DENSITY STUDY 1+ SITS AXIAL SKEL (08/08/2023 11:53 AM EDT) Anatomical Region Laterality Modality Bone Densitometr y 05/12/2023 2:38 PM EDT Narrative 08/09/2023 8:43 AM EDT BONE DENSITY (DEXA) Lumbar Spine T-score is 0.3. (SD relative to 20-29 y/o adult) Z-score is 2.4. (SD relative to age matched peers) This is considered normal by WHO criteria. Left Hip T-score is -0.7. Z-score is 1.1. This is considered normal by WHO criteria. IMPRESSION: This patient's considered to have normal bone density by WHO criteria. [facility] Department of Internal Medicine recommends using National Osteoporosis Foundation (NOF) guidelines in treatment decisions related to osteoporosis. NOF guidelines suggest considering treatment for postmenopausal women and men aged 50 or older presenting with the following: History of hip or vertebral fracture. T-score = -2.5 (DXA) at the femoral neck, total hip, or spine, after appropriate evaluation to exclude secondary causes. Low bone mass (T-score between -1.0 and -2.5 at the femoral neck or spine) AND a 10-year probability of a hip fracture = 3% OR a 10-year probability of a major osteoporosis-related fracture = 20% based on the [place]-adapted WHO algorithm Please note that all treatment decisions require clinical judgment and consideration of individual patient factors, including patient preferences, co-morbidities, previous drug use, risk factors not captured in the FRAX model (e.g., frailty, falls, vitamin D deficiency, increased bone turnover, interval significant decline in bone density) and possible under- or over-estimation of fracture risk by FRAX. Optional alternative screening schedule based on yazmin Carvalho., [facility] December 09, 2011 for patients with osteopenia (based on hip BMD T-score) is as follows: * advanced osteopenia (T scores -2.00 to -2.49), BMD testing every year * moderate osteopenia (T scores -1.50 to -1.99), BMD testing every 5 years mild osteopenia or normal BMD (T scores -1.50 and higher), BMD testing every 15 years Procedure Note Bryanna Dodson MD - 12/27/2023 BONE DENSITY (DEXA) Lumbar Spine T-score is 0.3. (SD relative to 20-29 y/o adult) Z-score is 2.4. (SD relative to age matched peers) This is considered normal by WHO criteria. Left Hip T-score is -0.7. Z-score is 1.1. This is considered normal by WHO criteria. IMPRESSION: This patient's considered to have normal bone density by WHO criteria. [facility] Department of Internal Medicinerecommends using National Osteoporosis Foundation (NOF) guidelines in treatment decisionsrelated to osteoporosis. NOF guidelines suggest considering treatment forpostmenopausal women and men aged 50 or older presenting with the following: History of hip or vertebral fracture. T-score = -2.5 (DXA) at the femoral neck, total hip, or spine, afterappropriate evaluation to exclude secondary causes. Low bone mass (T-score between -1.0 and -2.5 at the femoral neck or spine)AND a 10-year probability of a hip fracture = 3% OR a 10-year probability of a majorosteoporosis-related fracture = 20% based on the [place]-adapted WHO algorithm Please note that all treatment decisions require clinical judgment andconsideration of individual patient factors, including patient preferences, co- morbidities,previous drug use, risk factors not captured in the FRAX model (e.g., frailty, falls, vitaminD deficiency, increased bone turnover, interval significant decline in bone density) andpossible under- or over-estimation of fracture risk by FRAX. Optional alternative screening schedule based on yazmin Carvalho., [facility] for patients with osteopenia (based on hip BMD T-score) is as follows: * advanced osteopenia (T scores -2.00 to -2.49), BMD testing every year * moderate osteopenia (T scores -1.50 to -1.99), BMD testing every 5years mild osteopenia or normal BMD (T scores -1.50 and higher), BMD testingevery 15 years Trudy Gordon MD IM DXA PROCEDURES Final Re sult from Last 3 Months or Most Recently Relevant to Health Maintenance Insurance MEDICARE [facility] Care Teams Automatic Glove Former Relationship Specialty Start Date End Date Trudy Gordon MD PCP - General 10/03/14
--- OUTSIDE RECORDS SUMMARY | 2025-06-17 14:12 | XMS_ITS | Clinical Summary ---
Author Organization [facility] Address [address] [facility] [address] [place] [address] Phone Care Team Providers Care Consultative Sales Associate Name Role Phone Trudy Gordon MD Primary Care Provider Allergies Active Allergy Reactions Criticality Noted Date Comments Cortisone 05/14/2021 Ibuprofen 05/14/2021 Morphine 05/14/2021 Sulfa Antibiotics 05/14/2021 Medications famotidine (PEPCID) 40 MG tablet Take 40 mg by mouth 2 (two) times a day 03/26/2021 Active rosuvastatin (CRESTOR) 20 MG tablet Take 20 mg by mouth 1 (one) time each day 04/28/2021 Active cholecalciferol (VITAMIN D-3) 10 MCG (400 UNIT) tablet Take 2 Units by mouth 1 (one) time each day Active Cyanocobalamin (Vitamin B 12) 500 MCG tablet Take 1 tablet by mouth 1 (one) time each day Active cetirizine (ZyrTEC) 10 MG chewable tablet Chew 10 mg 1 (one) time each day Active lisinopril 20 MG tablet TAKE 1 TABLET (20 MG TOTAL) BY MOUTH ONCE DAILY 90 tablet 1 07/30/2023 Active metoprolol succinate XL (TOPROL-XL) 100 MG 24 hr tablet Take 100 mg by mouth 1 (one) time each day 05/24/2024 Active Multiple Vitamins-Mineral s (Centrum Silver 50+Women) tablet 10/21/2023 Active Active Problems Problem Noted Date Diagnosed Date Secondary hyperparathyroidism of renal origin Anemia of renal disease 12/21/2021 Hypertension 05/14/2021 Stage 3a chronic kidney disease 05/14/2021 Anemia 05/14/2021 Hyperlipidemia 05/14/2021 Gastroesophageal reflux disease 05/14/2021 Acute nontraumatic kidney injury 05/14/2021 Essential (primary) hypertension 05/14/2021 Family History Medical History Relation Comments Cancer Father Heart disease Maternal Grandfather Dementia Mother Diabetes Mother Hypertension Mother Heart disease Paternal Grandfather Relation Status Comments Father Maternal Grandfather Mother Paternal Grandfather Social History Tobacco Use Types Packs/Day Years Used Date Smoking Tobacco: Never Smokeless Tobacco: Never Tobacco Cessation:Counseling Given: Not Answered Alcohol Use Standard Drinks/Week Comments Yes 0 (1 standard drink = 0.6 oz pur e alcohol) Comments Unknown Sex and Gender Information Value Date Recorded Sex Assigned at Not on file Legal Sex Female 9:54 AM EDT Gender Identity Not on file Sexual Orientation Not on file Last Filed Vital Signs Vital Sign Reading Time Taken Comments Blood Pressure 118/66 07/17/2024 10:06 AM EDT Pulse 79 07/17/2024 10:06 AM EDT Temperature - - Respiratory Rate - - Oxygen Saturation - - Inhaled Oxygen Concentration - - Weight 99.3 kg (219 lb) 07/17/2024 10:06 AM EDT Height 165.1 cm (5' 5 ) 07/17/2024 10:06 AM EDT Body Mass Index 36.44 07/17/2024 10:06 AM EDT Plan of Treatment Upcoming Encounters Date Type Department Care Team (Late st Contact Info) Description 07/15/2025 3:00 PM EDT Office Visit [facility] [address] [phone] Rory Tuttle MD [address] [phone] Health Maintenance Due Date Last Done Comments Breast Cancer Screening 1950 Pneumococcal Vaccine: 50+ Ye ars (1 of 2 - PCV) 1971 Colorectal Cancer Screening: Annual FOBT 2001 Colorectal Cancer Screening: Colonoscopy 2001 Colorectal Cancer Screening: Sigmoidoscopy 2001 Influenza Vaccine (#1) 2025 Hepatitis B Vaccine Aged Out No longe r eligible based on patient's age to complete this topic Insurance Medicare [facility] [place] [facility] [place] [id number] Care Teams Consultative Sales Associate Relationship Specialty Start Date End Date Trudy Gordon MD [address] [place] [address] PCP - General Family Medicine 03/30/21
== END 2025-06-17 14:53 | disposition home or self-care (01) ==
LOC: HO.HCS 13:31
PROVIDERS: PCP Family Medicine; Visit Provider Internal Medicine Cardiovascular Disease
DX: I10 Essential (primary) hypertension (principal); I70.0 Atherosclerosis of aorta
CPT/HCPCS: 93010; 99214; G2211

== ENCOUNTER → 2025-06-17 13:30 | Outpatient (BNVA) | payer MEDICARE, OTHER, SELFPAY | PROVIDERS: PCP Family Medicine; Visit Provider Internal Medicine Cardiovascular Disease | DX: I10 Essential (primary) hypertension (principal); I70.0 Atherosclerosis of aorta | CPT/HCPCS: 93005; 99212 ==

== ENCOUNTER 2025-08-14 08:03 | Outpatient (AMB) | payer MEDICARE, OTHER, SELFPAY ==
[2025-08-14 08:21] VITALS: BMI 35.1
--- NOTE | 2025-08-14 08:21 | A.OFFVIS_ITS ---
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 States pain is mainly on her radial aspect of hand and started about 3 months ago with no improvement. No injury she can recall. Reports pain at radial side of wrist with gripping, pinching, chopping and when she picks up her grand babies. She is also having numbness and tingling daily especially in the morning. No EMG done. 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 She complains of right radial-sided wrist pain, worse with pinching or gripping activities. She says this has been present for ~3 months now. She says this is also worse when picking up her young grandchildren. She also complains of pain in her whole hand . She describes her pain as burning and says it wakes her up at night. She also complains of numbness and tingling in her hands. Symptoms intermittent, but daily, worse at night. 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 COUNTS INCLUDE [facility] BEDS AT [facility] Medical History HTN (hypertension) Surgical History Hx of cholecystectomy Hx of hysterectomy Hx of knee surgery Family History Father Lung cancer Mother No problems noted. Social History (Updated 08/14/25 @ 08:26 by RACHAEL Russell) Patient Tobacco Use Status: Never used Tobacco Current occupational status: retired Current occupation: rt hand Review of Systems Const All systems reviewed & are unremarkable except as noted in HPI and below Physical Exam Vital Signs: BMI result Body Mass Index 35.1 Const General: cooperative, healthy appearing and no acute distress Orientation/consciousness: patient oriented x3 HEENT Head: Yes normocephalic and Yes atraumatic Eyes EOM: EOMs intact bilaterally Resp Effort & Inspection: normal respiratory effort and able to speak in complete sentences Cardio Jugular venous distension: no JVD Skin General skin exam: turgor normal Rashes: no rashes Neuro General: patient oriented x3 Extrem Other: Evaluation of Right Upper Extremity: The patient is alert, oriented, and in no acute distress Neuro: Median, Ulnar, Radial nerves motor and sensory intact and sensation is normal to the tips of all digits Vascular: Cap refill brisk ROM: She can make a fist and extend all her digits No locking or catching Skin: No lacerations or abrasions. General: No Ecchymosis. No Erythema or evidence of infection. Tender over the 1st dorsal compartment Positive Asha test on the right Negative Asha test on the left No tenderness over the basal joint No tenderness over the a1 regino No tenderness over the MCP joint Psych Appearance: grossly normal Affect: normal affect Attitude: cooperative Office Procedures AMB Fracture Care Details: No Fracture, injection Fracture Billing Code: Fracture Billing Code Assessment & Plan Assessment & Plan (1) De Quervain's tenosynovitis, right: Code(s): M65.4 - Radial styloid tenosynovitis [de Quervain] Category: Medical (2) Numbness and tingling in both hands: Code(s): R20.0 - Anesthesia of skin; R20.2 - Paresthesia of skin Category: Medical Plan Assessment & Plan: 1. Right De Quervain's tenosynovitis Positive Asha test I educated her about this condition I discussed operative and non-operative treatment options The patient would like to proceed with an injection I discussed activity modification, they should limit or avoid any heavy or repetitive pinching or gripping activities She was fitted for a comfort cool brace to wear with daily activity She should work on ROM exercises, and avoid any gripping or strengthening activities I discussed the use of assistive devices for daily activity Injection #1: The risks and benefits of a steroid injection including but not limited to risk of damage to blood vessels, nerves, tendons, infection, skin bleaching, failure to improve symptoms, increased pain, and possible need for further injections or other intervention were discussed with the patient and the patient wishes to proceed with the steroid injection. Once consent was obtained, I sterilely prepped the area over the 1st dorsal compartment of the Right thumb. I then injected the 1st dorsal compartment with a combination of 1 mL of dexamethasone (4mg/ml), and 1% lidocaine. The patient tolerated the procedure well with no complications and good resolution of their symptoms prior to leaving clinic. If the patient continues to have pain 6-8 weeks following this injection, they may call to schedule appointment to discuss alternative treatment options 2. Bilateral hand numbness Symptoms intermittent, but daily I ordered a NCS to assess for peripheral nerve compression She will follow up when completed for review, no sooner than 6-8 weeks from today Scribed for Massiel Gupta MD by Ulises Gaines, medical staff coordinator, on 08/14/25 at 8:30 AM, EST. Orders: Orders NE nerve conduction velocity Today R20.0 - Anesthesia of skin, R20.2 - Paresthesia of skin NE electromyogram (EMG) Today R20.0 - Anesthesia of skin, R20.2 - Paresthesia of skin Coding Level of Care Code New Pt Level 3 (58369) Diagnoses De Quervain's tenosynovitis, right M65.4 Numbness and tingling in both hands R20.0; R20.2 CPT Codes Fracture Care - Fracture Billing Code: Fracture Billing Code ([id number])
== END 2025-08-14 08:56 | disposition home or self-care (01) ==
LOC: HO.HOS 08:03
PROVIDERS: PCP Family Medicine; Visit Provider Orthopaedic Surgery
DX: M65.4 Radial styloid tenosynovitis [de Quervain] (principal); R20.0 Anesthesia of skin; R20.2 Paresthesia of skin
CPT/HCPCS: 20550; 99203

== ENCOUNTER → 2025-08-14 08:03 | Outpatient (BNVA) | payer MEDICARE, OTHER, SELFPAY | PROVIDERS: PCP Family Medicine; Visit Provider Orthopaedic Surgery | DX: M65.4 Radial styloid tenosynovitis [de Quervain] (principal); N20.0 Calculus of kidney; N20.2 Calculus of kidney with calculus of ureter | CPT/HCPCS: 20550; 99202; J1100; J2003 ==

== ENCOUNTER 2025-08-26 13:56 | Outpatient (AMB) | payer MEDICARE, OTHER, SELFPAY ==
--- NOTE | 2025-08-26 13:59 | A.OFFVIS_ITS ---
Intake Visit Reasons: 9m follow up Intake Note: pt here today for: 9 Month F/u uro meds:None blood thinner:None Senior Functional Analyst Required: No Allergies morphine Allergy (Severe, Verified 08/26/25 14:03) Anaphylaxis ibuprofen Allergy (Mild, Verified 08/26/25 14:03) Stomach Upset Sulfa (Sulfonamide Antibiotics) Allergy (Mild, Verified 08/26/25 14:03) nausa cortizon Allergy (Mild, Uncoded 08/14/25 08:25) Flushing Medication List - Last Reconciled 08/26/25 by Mahesh Fine MD cetirizine (Zyrtec) 10 mg PO DAILY PRN cholecalciferol (vitamin D3) 50 mcg PO DAILY famotidine 40 mg PO BID lisinopril 20 mg PO DAILY mecobalamin (vitamin B12) mcg PO metoprolol succinate ER 100 mg PO DAILY lcbkjbav-dfhdxsn-qusy-lutein tabs PO ondansetron HCl 4 mg PO Q6H PRN rosuvastatin 20 mg PO DAILY tirzepatide (Mounjaro) 2.5 mg subcut QWEEK trospium ER 60 mg PO DAILY vibegron (Gemtesa) 75 mg PO DAILY HPI Comments Details: 08/26/25--Nicolasa is followed for overactive bladder symptoms she is prescribed Gemtesa 75 mg daily. History of Present Illness The patient is a 75-year-old female presenting with overactive bladder symptoms. She is currently on Gemtesa 75 mg daily, which has been effective in symptom management, though the cost is a concern at $165 for potentially a three-month supply. Alternatives such as Mirabegron and Trospium were discussed, with Trospium being prescribed to be taken on an empty stomach. Results - Urinalysis: Normal findings - Bladder scan PVR 57 mL Plan Overactive Bladder - Continue Gemtesa 75 mg daily, considering cost-effective alternatives. - Prescribed Trospium as an alternative, to be taken on an empty stomach, with a 90-day supply and a refill. - Evaluate the effectiveness and cost of the new medication. Follow-up in one year 11/26/24-Telehealth - -09/17/24--started Gemtesa 75 mg daily. Discussed Kegels bid. Angelia states that she is doing the Kegel exercises and using the Gemtesa. She has seen an improvement in her bladder control. I will continue Gemtesa daily. Follow-up in 9 months. 09/17/24--Angelia is here for FU, she states she is still leaking even after completing the ceftin abx. She states sometimes the leakage is associated with urgency, and sometimes she doesn't know when she is leaking but her underwear is wet. Discussed trial of antimuscarinc and discussed how to do kegel exercises. 08/10/24--Angelia is a 73-year-old female who was seen in the emergency room yesterday with complaints of right lower quadrant pain and nausea. Today she feels better but she still has a vague sensation of discomfort in the right lower quadrant. CTAP w/wo IV contrast-reported no acute findings, kidneys negative for stones or hydronephrosis. Subtle stranding adjacent to the anterior aspect of the bladder, nonspecific. The patient gives a history of about 6 weeks ago having right hip pain she was evaluated and told that there was bursitis. On Tuesday08/08/2024, she states she had severe right lower quadrant pain and had associated nausea and vomiting for most of the day into the following day that she presented to the ED. CT noted subtle findings that were nonspecific with some stranding around the bladder. Urinalysis negative for blood negative for leukocytes. The patient states that what is different regarding her urination is that for several weeks she has been getting urine leakage in has needed to wear a pad. It is unclear if her right sided pain is related to the urinary tract, as she has new symptoms of incontinence and there are subtle changes that may suggest cystitis I will empirically trial her on Ceftin 250 mg twice a day for 5 days and send her urine for culture. [facility] Medical History HTN (hypertension) Surgical History Hx of cholecystectomy Hx of hysterectomy Hx of knee surgery Family History Father Lung cancer Mother No problems noted. 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 Review of Systems Const All systems reviewed & are unremarkable except as noted in HPI and below Reports no additional complaints Eyes Reports no additional complaints ENT Reports no additional complaints Card Reports no additional complaints Resp Reports no additional complaints GI Reports no additional complaints Reports as per HPI Musc Reports no additional complaints Skin/Breast Reports system reviewed and no additional complaints, except as documented Neuro Reports no additional complaints Psych Reports no additional complaints Endo Reports no additional complaints Aram/Lymph Reports no additional complaints Aller/Immun Reports no additional complaints Office Procedures Post Void Residual Post Residual Void Post Void Residual (PVR): 57 49028-Pxwo Void Residual by ultrasound Results AMB Urinalysis, Automated UA Leukoctes 15 [place]/uL Last Edit by Isabella Irene on 08/26/25 14:16 UA Nitrite Negative Last Edit by Isabella Irene on 08/26/25 14:16 UA Urobilinogen 0.2 mg/dL Last Edit by Isabella Irene on 08/26/25 14:16 UA Protein 0 mg/dL Last Edit by Isabella Irene on 08/26/25 14:16 UA pH 5.5 Last Edit by Isabella Irene on 08/26/25 14:16 UA Blood 0 Charles/uL Last Edit by Isabella Irene on 08/26/25 14:16 UA Specific [place] 1.025 Last Edit by Isabella Irene on 08/26/25 14:16 UA Ketone Negative Last Edit by Isabella Irene on 08/26/25 14:16 UA Bilirubin 0 mg/dL Last Edit by Isabella Irene on 08/26/25 14:16 UA Glucose 0 mg/dL Last Edit by Isabella Irnee on 08/26/25 14:16 Results Reviewed Results Reviewed: Laboratory Last Values Urine pH (Auto) 5.5 08/26/25 14:03 Specific [place] (Auto) 1.025 08/26/25 14:03 Urine Protein (Auto) 0 mg/dL 08/26/25 14:03 Glucose (UA)(Auto) 0 mg/dL 08/26/25 14:03 Urine Ketones (Auto) Negative 08/26/25 14:03 Urine Blood (Auto) 0 Charles/uL 08/26/25 14:03 Urine Nitrite (Auto) Negative 08/26/25 14:03 Urine Bilirubin (Auto) 0 mg/dL 08/26/25 14:03 Urine Urobilinogen (Auto) 0.2 mg/dL 08/26/25 14:03 Leukocyte Esterase (Auto) 15 [place]/uL 08/26/25 14:03 Date of Service: 08/09/24 CT ABDOMEN AND PELVIS WITH CONTRAST CLINICAL INFORMATION: Right lower quadrant pain, nausea/vomiting COMPARISON: None available. TECHNIQUE: Multidetector volumetric images were obtained from the superior aspect of the liver through the pubic symphysis following administration 85 mL of Omnipaque 350 intravenous contrast. Sagittal and coronal reformatted images were obtained on the technologist's workstation. Oral contrast: No This CT examination was performed using dose optimization techniques as appropriate, variously including the following: *Automated exposure control *Adjustment of mA and/or kV according to patient size (this includes techniques or standardized protocols for targeted exams where dose is matched to indication/reason for exam; i.e. extremities or head) *Use of iterative reconstruction technique DLP: 842 mGy-cm FINDINGS: Limited evaluation in some regions due to motion artifact. LUNG BASES: The visualized lung bases are unremarkable. LIVER, GALLBLADDER, AND BILIARY TREE: The liver is normal in size, shape, and attenuation. No focal hepatic lesion or significant biliary ductal dilatation is present. Patient is status post cholecystectomy. PANCREAS: Unremarkable. SPLEEN: Unremarkable. ADRENAL GLANDS: Unremarkable. KIDNEYS AND URETERS: Bilateral nephrograms are symmetric. No hydronephrosis or obstructing calculus identified. Small hypodensity in the posterior right kidney favors a cyst; no follow-up recommended. BLADDER: Minimally distended and suboptimally assessed. Subtle stranding is noted adjacent to the anterior aspect of the bladder. GASTROINTESTINAL TRACT: No evidence of bowel obstruction or significant wall thickening. Sigmoid colon diverticulosis is noted. The appendix is unremarkable. No free fluid or free air is seen. ABDOMINAL WALL: No significant hernia is appreciated. LYMPH NODES: Normal. VASCULAR: Mild scattered atherosclerotic calcifications. PELVIC VISCERA: Patient is status post hysterectomy. OSSEOUS STRUCTURES: Disc space narrowing and endplate osteophytes, most prominently in the lower thoracic spine. IMPRESSION: 1. Limited evaluation in some regions due to motion artifact. Subtle stranding adjacent to the anterior aspect of the bladder, which could reflect cystitis in the proper clinical setting. Correlation with urinalysis is recommended. 2. Normal appendix. 3. Sigmoid colon diverticulosis without diverticulitis. Assessment & Plan Assessment & Plan (1) Urinary incontinence: Code(s): R32 - Unspecified urinary incontinence Category: Medical (2) OAB (overactive bladder): Code(s): N32.81 - Overactive bladder Category: Medical Plan Plan Overactive Bladder - Continue Gemtesa 75 mg daily, considering cost-effective alternatives. - Prescribed Trospium as an alternative, to be taken on an empty stomach, with a 90-day supply and a refill. - Evaluate the effectiveness and cost of the new medication. Follow-up in one year Orders: Orders AMB Post Void Residual by ultrasound Today R32 - Unspecified urinary incontinence, Z13.9 - Encounter for screening, unspecified AMB Urinalysis Automated Today Z13.9 - Encounter for screening, unspecified Medications: New trospium ER must be taken on empty stomach at least 1 hour before a meal/food with water only 60 mg PO DAILY 90 caps 1RF Coding Level of Care Code Est Pt Level 4 (79333) Diagnoses Urinary incontinence R32 OAB (overactive bladder) N32.81 CPT Codes Post Residual Void - PVR CPT Code: 52949-Jvth Void Residual by ultrasound ([id number])
--- OUTSIDE RECORDS SUMMARY | 2025-08-26 16:22 | XMS_ITS | Clinical Summary ---
Author Organization [facility] Address [address] [place] [phone] Phone Care Team Providers Care Malt Liquors Sales Representative Name Role Phone Trudy Gordon MD Primary Care Provider [phone] Allergies Active Allergy Reactions Criticality Noted Date [...] kidney injury 05/14/2021 Essential (primary) hypertension 05/14/2021 Encounters Date Type Department Care Team Description 07/15/2025 3:00 PM EDT Office Visit [facility] [address] [phone] Rory Tuttle MD Stage 3 chronic kidney disease, not otherwise specified (HCC) (Primary Dx); Hypertension from Last 3 Months Family History Medical History Relation Comments Cancer [...] Sign Reading Time Taken Comments Blood Pressure 120/62 07/15/2025 3:02 PM EDT Pulse 92 07/15/2025 3:02 PM EDT Temperature - - Respiratory Rate - - Oxygen Saturation - - Inhaled Oxygen Concentration - - Weight 93.9 kg (207 lb) 07/15/2025 3:02 PM EDT Height 165.1 cm (5' 5 ) 07/17/2024 10:06 AM EDT Body Mass Index 34.45 07/17/2024 10:06 AM EDT Plan of Treatment Upcoming Encounters Date Type Department Care Team (Late st Contact Info) Description 07/14/2026 1:30 PM EDT Office Visit [facility] [address] [phone] Rory Tuttle MD [address] [phone] Health Maintenance Due Date Last Done Comments [...] Procedure Name Priority Date/Time Associated Diagnosis Comments URINE ALBUMIN / CREATININE RATIO Routine 07/15/2025 3:24 PM EDT Stage 3 chronic kidney disease, not otherwise specified (HCC) RENAL FUNCTION PANEL Routine 07/15/2025 3:24 PM EDT Stage 3 chronic kidney disease, not otherwise specified (HCC) from Last 3 Months Results * urine albumin / creatinine ratio (07/15/2025 3:24 PM EDT) Creatinine, Ur 130.0 Not Estab. mg/dL [facility] Albumin, Urine 8.8 Not Estab. ug/mL [facility] Albumin/Creatin ine Ratio 7 0 - 29 mg/g creat [facility] Comment: Normal: 0 - 29 Moderately increased: 30 - 300 Severely increased: >300 Urine Urine specimen obtained by clean catch procedure / Unknown 07/15/2025 3:24 PM EDT 07/15/2025 us Rory Tuttle MD LAB URINE ORDERABLES Final Resul t [facility] [address] [place] [address] * (ABNORMAL) Renal funtion panel (07/15/2025 3:24 PM EDT) Glucose 97 70 - 99 mg/dL [facility] BUN 18 8 - 27 mg/dL [facility] Creatinine 1.31(H) 0.57 - 1.00 mg/dL [facility] eGFR CKD-EPI CR 2020 43(L) >59 mL/min/1.7 3 [facility] BUN/Creatinine Ratio 14 12 - 28 [facility] Sodium 142 134 - 144 mmol/L [facility] Potassium 4.7 3.5 - 5.2 mmol/L [facility] Chloride 105 96 - 106 mmol/L [facility] Bicarbonate (CO2) 20 20 - 29 mmol/L [facility] Calcium 9.8 8.7 - 10.3 mg/dL [facility] Albumin 4.5 3.8 - 4.8 g/dL [facility] Phosphorus 4.2 3.0 - 4.3 mg/dL [facility] Blood Venous blood / Unknown 07/15/2025 3:24 PM EDT 07/15/2025 us Rory Tuttle MD LAB BLOOD ORDERABLES Final Resul t [facility] [address] [place] [address] from Last 3 Months Insurance [facility] [employer] Care Teams Malt Liquors Sales Representative Relationship Specialty Start Date End Date Trudy Gordon MD [address] [place] [id number] PCP - General Family Medicine 03/30/21
--- OUTSIDE RECORDS SUMMARY | 2025-08-26 16:22 | XMS_ITS | Clinical Summary ---
Author Organization [facility] [address] [place] [address] [place] [phone] Phone Care Team Providers Care Surfacer Name Role Phone Trudy Gordon MD Primary Care Provider [phone] Medications famotidine (PEPCID) 40 mg tabletIndication s:Gastroesophage al reflux disease without esophagitis TAKE 1 TABLET BY MOUTH TWICE A DAY DIRECTED 180 tablet 5 Active Surgical History Surgery Date Site/Laterality Comments OTHER SURGICAL HISTORY 1990 PROCEDURE: [place] TOTAL ABDOMINAL HYSTERECT W/WO RMVL TUBE OVARY CHOLECYSTECTOMY 1984 PROCEDURE: [place] CHOLECYSTECTOMY; COMMENT: open procedure KNEE SURGERY 2011 [...] 02/21/2026 3:00 PM EDT Appointment Radiology Department [address] [address] Health Maintenance Due Date Last Done Comments Colorectal Cancer Screening: Colonoscopy 1950 Cholesterol Screening (Lipid Panel) 10/30/2022 Falls Risk Assessment 10/30/2022 Hepatitis C Screening 10/30/2022 Social Influencers of Health Screening 10/30/2022 Hypertension/CHF/CAD Annual BMP Blood Test 11/05/2022 Medicare Annual Wellness Visit 05/03/2024 05/03/2023 Depression Screening 11/21/2024 COVID-19 Vaccine ( season) 2025 10/09/2022, 08/31/2021, 02/07/2021, Additional history exists Influenza Vaccine (#1) 2025 , 09/02/2023, 09/18/2022, [...] is recommended in 1 year. Mammo Location: [facility], [address] [place] [address], [address], . -------- FINAL REPORT -------- Dictated By: Eliecer Banks Dictated Date: 02/21/2025 09:26 ET Assigned Physician: Eliecer Banks Reviewed and Electronically Signed By: Eliecer Banks Signed Date: 02/21/2025 09:30 ET Workstation ID: [id number] Transcribed By: Self Edit Transcribed Date: 02/21/2025 [...] is recommended in 1 year. Mammo Location: [facility], [address] [place] [address], [address], . -------- FINAL REPORT -------- Dictated By: Eliecer Banks Dictated Date: 02/21/2025 09:26 ET Assigned Physician: Eliecer Banks Reviewed and Electronically Signed By: Eliecer Banks Signed Date: 02/21/2025 09:30 ET Workstation ID: [id number] Transcribed By: Self Edit Transcribed Date: 02/21/2025 [...] normal bone density by WHO criteria. [facility] Department of Internal Medicine recommends using National [...] alternative screening schedule based on yazmin Carvalho., [facility] December 09, 2011 for patients [...] normal bone density by WHO criteria. [facility] Department of Internal Medicinerecommends using National Osteoporosis [...] alternative screening schedule based on yazmin Carvalho., [facility] for patients with osteopenia [...] Recently Relevant to Health Maintenance Insurance MEDICARE [facility] Care Teams Surfacer Relationship Specialty Start Date End Date Trudy Gordon MD PCP - General 10/03/14
== END 2025-08-26 14:54 | disposition home or self-care (01) ==
LOC: HO.HUSH 13:57
PROVIDERS: Visit Provider Urology
DX: R32 Unspecified urinary incontinence (principal); N32.81 Overactive bladder; Z13.9 Encounter for screening, unspecified
CPT/HCPCS: 99214

== ENCOUNTER → 2025-08-26 13:56 | Outpatient (BNVA) | payer MEDICARE, OTHER, SELFPAY | PROVIDERS: Visit Provider Urology | DX: N32.81 Overactive bladder (principal); R32 Unspecified urinary incontinence; Z79.899 Other long term (current) drug therapy | CPT/HCPCS: 51798; 81003; 99212 ==

== ENCOUNTER 2025-09-04 13:05 | Outpatient (REF) | payer MEDICARE, OTHER, SELFPAY ==
--- NOTE | 2025-09-04 13:10 | EMG_ITS ---
Chief complaint: Bilateral hand numbness/tingling Reason for referral: Evaluate for Carpal Tunnel Syndrome Referred by: Dr. Gupta Procedure done: Bilateral upper extremities NCS/EMG Precautions and/or limitations: None The limb temperature was monitored continuously and remained between 32-36 degrees C during the performance of the NCS. Nerve Conduction Studies Anti Sensory Summary Table ?Stim Site NR Onset (ms) Norm Onset (ms) Peak (ms) Norm Peak (ms) O-P Amp (?V) Norm O-P Amp Site1 Site2 Delta-0 (ms) Dist (cm) Carroll (m/s) Norm Carroll (m/s) Left Median Anti Sensory (2nd Digit) Wrist ? 3.3 4.5 <3.6 17.6 >10 Wrist 2nd Digit 3.3 14.0 42 Right Median Anti Sensory (2nd Digit) Wrist ? 3.2 4.3 <3.6 15.9 >10 Wrist 2nd Digit 3.2 14.0 44 Right Radial Anti Sensory (Thumb) Forearm ? 2.1 2.6 <3.1 18.4 Forearm Thumb 2.1 0.0 Left Ulnar Anti Sensory (5th Digit) Wrist ? 2.7 3.7 <3.7 35.4 >15.0 Wrist 5th Digit 2.7 14.0 52 Right Ulnar Anti Sensory (5th Digit) Wrist ? 2.6 3.6 <3.7 18.1 >15.0 Wrist 5th Digit 2.6 14.0 54 Motor Summary Table ?Stim Site NR Onset (ms) Norm Onset (ms) O-P Amp (mV) Norm O-P Amp iAmp (mV) Amp (1st) (%) Site1 Site2 Delta-0 (ms) Dist (cm) Carroll (m/s) Norm Carroll (m/s) Left Median Motor (Abd Poll Brev) Wrist ? 4.2 <3.9 9.0 >4.5 11.6 100.0 Elbow Wrist 3.8 19.0 50 >45 Elbow ? 8.0 9.4 11.9 104.4 Right Median Motor (Abd Poll Brev) Wrist ? 4.8 <3.9 8.4 >4.5 10.6 100.0 Elbow Wrist 3.6 19.0 53 >45 Elbow ? 8.4 9.0 11.5 107.1 Left Ulnar Motor (Abd Dig Minimi) Wrist ? 3.1 <3.0 9.1 >5 10.5 100.0 B Elbow Wrist 3.3 17.0 52 >45 B Elbow ? 6.4 7.6 9.1 83.5 A Elbow B Elbow 1.4 10.0 71 >45 A Elbow ? 7.8 7.7 9.2 84.6 Right Ulnar Motor (Abd Dig Minimi) Wrist ? 2.9 <3.0 8.3 >5 10.4 100.0 B Elbow Wrist 3.0 18.0 60 >45 B Elbow ? 5.9 6.6 8.5 79.5 A Elbow B Elbow 1.2 10.0 83 >45 A Elbow ? 7.1 7.1 9.3 85.5 EMG ?Side Muscle Nerve Root Ins Act Fibs Psw Amp Dur Poly Recrt Int Pat Comment Right 1stDorInt Ulnar C8-T1 Nml Nml Nml Nml Nml 0 Nml Complete Right FlexCarRad Median C6-7 Nml Nml Nml Nml Nml 0 Nml Complete Right FlexCarpiUln Ulnar C8,T1 Nml Nml Nml Nml Nml 0 Nml Complete Right Biceps Musculocut C5-6 Nml Nml Nml Nml Nml 0 Nml Complete Right Triceps Radial C6-7-8 Nml Nml Nml Nml Nml 0 Nml Complete Right Deltoid Axillary C5-6 Nml Nml Nml Nml Nml 0 Nml Complete Left 1stDorInt Ulnar C8-T1 Nml Nml Nml Nml Nml 0 Nml Complete Left FlexCarRad Median C6-7 Nml Nml Nml Nml Nml 0 Nml Complete Left FlexCarpiUln Ulnar C8,T1 Nml Nml Nml Nml Nml 0 Nml Complete Left Biceps Musculocut C5-6 Nml Nml Nml Nml Nml 0 Nml Complete Left Triceps Radial C6-7-8 Nml Nml Nml Nml Nml 0 Nml Complete Left Deltoid Axillary C5-6 Nml Nml Nml Nml Nml 0 Nml Complete FINDINGS: Bilateral median motor nerves showed prolonged distal latency, normal amplitude and normal conduction velocity. All other nerves tested were within normal. Concentric needle EMG was performed in selected muscles of the bilateral upper extremities. Study did not reveal signs of electric abnormalities as shown in the table above. IMPRESSION: 1. This is an abnormal study. 2. There is electrodiagnostic evidence for bilateral moderate-severe median neuropathy at the wrist, consistent with carpal tunnel syndrome. 3. There is no electrodiagnostic evidence for ulnar neuropathy, brachial plexopathy, or cervical radiculopathy. Thank you for your kind referral. Keri Ferrer MD, ROMY Board Certified, [place] Board of [employer] and Rehabilitation (ABPMR) Board Certified, [place] Board of Electrodiagnostic Medicine (ABEM) CODIN [phone] MTDD
== END 2025-09-04 13:06 | disposition home or self-care (01) ==
LOC: HO.NEURO 13:05
PROVIDERS: PCP Family Medicine; Visit Provider Orthopaedic Surgery
DX: R20.0 Anesthesia of skin (principal); R20.2 Paresthesia of skin
CPT/HCPCS: 95886; 95911

== ENCOUNTER → 2025-09-04 13:10 | Outpatient (BNV) | payer MEDICARE, OTHER, SELFPAY | PROVIDERS: PCP Family Medicine; Visit Provider Physical Medicine & Rehabilitation | DX: G56.13 Other lesions of median nerve, bilateral upper limbs (principal) | CPT/HCPCS: 95886; 95911 ==

== ENCOUNTER 2025-10-02 09:29 | Outpatient (AMB) | payer MEDICARE, OTHER, SELFPAY ==
--- NOTE | 2025-10-02 09:40 | MHC.OFFVIS ---
Vital Signs 10/02/25 09:49 Height 5 ft 5 in Weight 211 lb BMI 35.1 Intake Visit Reasons: OV Right Hand Pain, Intake Note: Angelia 75 yr old right hand dominant female presents today for her follow up visit for right hand De Quervain's tenosynovitis s/p injection on 08/14/25 and to review her EMG study. Patient reports she did feel better after injection but a few days later while at work she over used her hand and now pain is back. States she would like to discuss surgical intervention. IMPRESSION: 1. This is an abnormal study. 2. There is electrodiagnostic evidence for bilateral moderate-severe median neuropathy at the wrist, consistent with carpal tunnel syndrome. 3. There is no electrodiagnostic evidence for ulnar neuropathy, brachial plexopathy, or cervical radiculopathy. Allergies morphine Allergy (Severe, Verified 10/02/25 09:49) Anaphylaxis ibuprofen Allergy (Mild, Verified 10/02/25 09:49) Stomach Upset Sulfa (Sulfonamide Antibiotics) Allergy (Mild, Verified 10/02/25 09:49) nausa cortizon Allergy (Mild, Uncoded 10/02/25 09:49) Flushing HPI HPI OV Right Hand Pain,: Details: Angelia is a 74 year old right hand dominant woman who returns for a NCS review of her bilateral hand numbness, & right De Quervains tenosynovitis. She received an injection on 08/14/25, with some relief. She complains of right radial-sided wrist pain, worse with pinching or gripping activities. She says the injection helped or a few days but then she overused her hand and brought her pain back. She would like to discuss surgery. She also complains of numbness and tingling in her hands. Symptoms intermittent, but daily, worse at night. She describes this also as a burning sensation. 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 [facility] Medical History HTN (hypertension) Surgical History (Reviewed 10/02/25 @ 09:49 by Kareen Nieves [facility]) Hx of cholecystectomy Hx of hysterectomy Hx of knee surgery Family History Father Lung cancer Mother No problems noted. 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 Physical Exam Vital Signs: BMI result Body Mass Index 35.1 Extrem Other: Evaluation of Right Upper Extremity: The patient is alert, oriented, and in no acute distress Neuro: Median, Ulnar, Radial nerves motor and sensory intact and sensation is normal to the tips of all digits Vascular: Cap refill brisk ROM: She can make a fist and extend all her digits No locking or catching Tender over the 1st dorsal compartment Mildly Positive Asha test on the right Negative Asha test on the left No tenderness over the basal joint No tenderness over the a1 regino No tenderness over the MCP joint Nerve Conduction Study: IMPRESSION: 1. This is an abnormal study. 2. There is electrodiagnostic evidence for bilateral moderate-severe median neuropathy at the wrist, consistent with carpal tunnel syndrome. 3. There is no electrodiagnostic evidence for ulnar neuropathy, brachial plexopathy, or cervical radiculopathy. Thank you for your kind referral. Keri Ferrer MD, ROMY 09/04/25 Assessment & Plan Assessment & Plan (1) De Quervain's tenosynovitis, right: Code(s): M65.4 - Radial styloid tenosynovitis [de Quervain] Category: Medical (2) Carpal tunnel syndrome of right wrist: Code(s): G56.01 - Carpal tunnel syndrome, right upper limb Category: Medical (3) Carpal tunnel syndrome of left wrist: Code(s): G56.02 - Carpal tunnel syndrome, left upper limb Category: Medical Plan Assessment & Plan: 1. Right De Quervain's tenosynovitis, S/P injection Date of injection: 08/14/25 Positive Asha test 2. Right carpal tunnel syndrome, moderate-severe Symptoms intermittent, but daily I educated her about these conditions I discussed operative and non-operative treatment options The patient would like to proceed with surgery I discussed activity modification, they should limit or avoid any heavy or repetitive pinching or gripping activities She should continue to wear her comfort cool brace with daily activity She should work on ROM exercises, and avoid any gripping or strengthening activities I discussed the use of assistive devices for daily activity The risks and benefits of operative treatment were discussed with the patient and the patient wishes to proceed with surgery. These risks include, but are not limited to risk of damage to blood vessels, nerves, tendons, infection, recurrence, incomplete relief of preoperative symptoms, persistent pain, possible need for further surgery and the risks associated with regional blocks and anesthesia. The plan is to take the patient to the operating room sometime in the next few weeks for the following procedures: 1. Right 1st dorsal compartment release, under local 2. Right carpal tunnel release, under local All of the preoperative paperwork including the consent was reviewed today. All the patient's questions were answered. The patient understands that they will be contacted by our veterinary surgery technician soon to schedule this procedure. She would like to have this done the Tuesday before if possible so she is off for the school winter vacation. She denies Diabetes, blood thinners, asthma, heart, lung, kidney issues She is Pre-Diabetic.They will need an updated HgA1c that is <8.1% in order to proceed with surgery, and they expressed understanding 3. Left carpal tunnel syndrome, moderate-severe Symptoms intermittent, but daily We can discuss treatment options when her right side has recovered Scribed for Massiel Gupta MD by Ulises Gaines, medical transcription radiology, on 10/02/25 at 10:00 AM, EST. Orders: Orders XR hand RT min 3V Today M79.641 - Pain in right hand Coding Level of Care Code Est Pt Level 4 (23065) Diagnoses De Quervain's tenosynovitis, right M65.4 Carpal tunnel syndrome of right wrist G56.01 Carpal tunnel syndrome of left wrist G56.02
[2025-10-02 09:49] VITALS: BMI 35.1
--- OUTSIDE RECORDS SUMMARY | 2025-10-02 10:32 | XMS_ITS | Clinical Summary ---
Author Organization [facility] Address [address] [facility] [address] [place] [address] Phone Care Team Providers Care Technical Business Systems Analyst Name Role Phone Trudy Gordon MD Primary Care Provider [phone] Allergies Active Allergy Reactions Criticality Noted Date [...] [facility] [address] [phone] Rory Tuttle MD Stage 3 chronic kidney [...] Visit [facility] [address] [phone] Rory Tuttle MD [address] [phone] Health Maintenance Due Date Last Done Comments [...] Creatinine, Ur 130.0 Not Estab. mg/dL [facility] Albumin, Urine 8.8 Not Estab. ug/mL [facility] Albumin/Creatin ine Ratio 7 0 - 29 mg/g creat [facility] Comment: Normal: 0 - 29 Moderately increased: 30 - 300 Severely increased: >300 Urine Urine specimen obtained by clean catch procedure / Unknown 07/15/2025 3:24 PM EDT 07/15/2025 us Rory Tuttle MD LAB URINE ORDERABLES Final Resul t [facility] [address] [place] [address] * (ABNORMAL) Renal funtion panel (07/15/2025 3:24 PM EDT) Glucose 97 70 - 99 mg/dL [facility] BUN 18 8 - 27 mg/dL [facility] Creatinine 1.31(H) 0.57 - 1.00 mg/dL [facility] eGFR CKD-EPI CR 2020 43(L) >59 mL/min/1.7 3 [facility] BUN/Creatinine Ratio 14 12 - 28 [facility] Sodium 142 134 - 144 mmol/L [facility] Potassium 4.7 3.5 - 5.2 mmol/L [facility] Chloride 105 96 - 106 mmol/L [facility] Bicarbonate (CO2) 20 20 - 29 mmol/L [facility] Calcium 9.8 8.7 - 10.3 mg/dL [facility] Albumin 4.5 3.8 - 4.8 g/dL [facility] Phosphorus 4.2 3.0 - 4.3 mg/dL [facility] Blood Venous blood / Unknown 07/15/2025 3:24 PM EDT 07/15/2025 us Rory Tuttle MD LAB BLOOD ORDERABLES Final Resul t [facility] [address] [place] [address] from Last 3 Months Insurance Medicare [facility] Unicare Care Teams Technical Business Systems Analyst Relationship Specialty Start Date End Date Trudy Gordon MD [address] [place] [phone] PCP - General Family Medicine 03/30/21
--- OUTSIDE RECORDS SUMMARY | 2025-10-02 10:32 | XMS_ITS | Clinical Summary ---
Author Organization [facility] [address] [place] [address] [place] [phone] Phone Care Team Providers Care Die Out Worker Name Role Phone Trudy Gordon MD Primary Care Provider [phone] Medications famotidine (PEPCID) 40 mg tabletIndication s:Gastroesophage al reflux disease without esophagitis TAKE 1 TABLET BY MOUTH TWICE A DAY DIRECTED 180 tablet 5 Active Surgical History Surgery Date Site/Laterality Comments OTHER SURGICAL HISTORY 1990 PROCEDURE: [place] TOTAL ABDOMINAL HYSTERECT W/WO RMVL TUBE OVARY CHOLECYSTECTOMY 1984 PROCEDURE: ME CHOLECYSTECTOMY; COMMENT: open procedure KNEE SURGERY 2011 [...] 02/21/2026 3:00 PM EDT Appointment Radiology Department [address] [phone] Health Maintenance Due Date Last Done Comments [...] is recommended in 1 year. Mammo Location: [facility], [address] [place] [address], [address], . -------- FINAL REPORT -------- Dictated By: Eliecer Banks Dictated Date: 02/21/2025 09:26 ET Assigned Physician: Eliecer Banks Reviewed and Electronically Signed By: Eliecer Banks Signed Date: 02/21/2025 09:30 ET Workstation ID: [id number] Transcribed By: Self Edit Transcribed Date: 02/21/2025 [...] is recommended in 1 year. Mammo Location: [facility], [address] [place] [address], [address], . -------- FINAL REPORT -------- Dictated By: Eliecer Banks Dictated Date: 02/21/2025 09:26 ET Assigned Physician: Eliecer Banks Reviewed and Electronically Signed By: Eliecer Banks Signed Date: 02/21/2025 09:30 ET Workstation ID: [id number] Transcribed By: Self Edit Transcribed Date: 02/21/2025 [...] normal bone density by WHO criteria. [facility] Department of Internal Medicine recommends using National [...] alternative screening schedule based on yazmin Carvalho., [facility] December 09, 2011 for patients with osteopenia [...] normal bone density by WHO criteria. [facility] Department of Internal Medicinerecommends using National Osteoporosis [...] alternative screening schedule based on yazmin Carvalho., [facility] for patients with osteopenia (based on [...] Recently Relevant to Health Maintenance Insurance MEDICARE [facility] Care Teams Die Out Worker Relationship Specialty Start Date End Date Trudy Gordon MD PCP - General 10/03/14
== END 2025-10-02 10:17 | disposition home or self-care (01) ==
LOC: HO.HOS 09:30
PROVIDERS: PCP Family Medicine; Visit Provider Orthopaedic Surgery
DX: M65.4 Radial styloid tenosynovitis [de Quervain] (principal); G56.03 Carpal tunnel syndrome, bilateral upper limbs
CPT/HCPCS: 99214

== ENCOUNTER → 2025-10-02 09:31 | Outpatient (BNV) | payer MEDICARE, OTHER, SELFPAY | PROVIDERS: Visit Provider Radiology Diagnostic Radiology | DX: M19.041 Primary osteoarthritis, right hand (principal); M85.841 Other specified disorders of bone density and structure, right hand | CPT/HCPCS: 73130 ==

== ENCOUNTER 2025-10-02 14:25 | Outpatient (REF) | payer MEDICARE, OTHER, SELFPAY ==
--- NOTE | ~2025-10-02 | XR_ITS ---
EXAMINATION: XR HAND, RIGHT CLINICAL INFORMATION: M79.641 - Pain in right hand COMPARISON: None available. TECHNIQUE: PA, lateral, and oblique views of the right hand. FINDINGS: There is diffuse osteopenia. There is mild narrowing of DIP and PIP joint spaces. There are small marginal osteophytes in the DIP greater than PIP joints. There is mild ulnar plus variance measuring 2 mm. There is degenerative cystic change with peripheral sclerosis in the ulnar side of lunate. There is also subtle convexity in the adjacent subchondral bone margin. No fracture is evident. XR/XR hand RT min 3V IMPRESSION: Possible ulnolunate impaction syndrome. Mild osteoarthritis. Osteopenia. Electronically signed by: Rashi Mock MD 10/02/2025 09:45 AM CARLYN
--- OUTSIDE RECORDS SUMMARY | 2025-10-03 17:52 | XMS_ITS | Clinical Summary ---
Author Organization [facility] Address [address] [place] [phone] Phone Care Team Providers Care Regional Clinical Director Name Role Phone Trudy Gordon MD Primary Care Provider [phone] Allergies Active Allergy Reactions Criticality Noted Date [...] Office Visit [facility] [address] [phone] Rory Tuttle MD Stage 3 chronic kidney [...] Visit [facility] [address] [phone] Rory Tuttle MD [address] [phone] Health Maintenance Due Date Last Done Comments [...] Creatinine, Ur 130.0 Not Estab. mg/dL [facility] Albumin, Urine 8.8 Not Estab. ug/mL [facility] Albumin/Creatin ine Ratio 7 0 - 29 mg/g creat [facility] Comment: Normal: 0 - 29 Moderately increased: 30 - 300 Severely increased: >300 Urine Urine specimen obtained by clean catch procedure / Unknown 07/15/2025 3:24 PM EDT 07/15/2025 us Rory Tuttle MD LAB URINE ORDERABLES Final Resul t [facility] [address] [place] [address] * (ABNORMAL) Renal funtion panel (07/15/2025 3:24 PM EDT) Glucose 97 70 - 99 mg/dL [facility] BUN 18 8 - 27 mg/dL [facility] Creatinine 1.31(H) 0.57 - 1.00 mg/dL [facility] eGFR CKD-EPI CR 2020 43(L) >59 mL/min/1.7 3 [facility] BUN/Creatinine Ratio 14 12 - 28 [facility] Sodium 142 134 - 144 mmol/L [facility] Potassium 4.7 3.5 - 5.2 mmol/L [facility] Chloride 105 96 - 106 mmol/L [facility] Bicarbonate (CO2) 20 20 - 29 mmol/L [facility] Calcium 9.8 8.7 - 10.3 mg/dL [facility] Albumin 4.5 3.8 - 4.8 g/dL [facility] Phosphorus 4.2 3.0 - 4.3 mg/dL [facility] Blood Venous blood / Unknown 07/15/2025 3:24 PM EDT 07/15/2025 us Rory Tuttle MD LAB BLOOD ORDERABLES Final Resul t [facility] [address] [place] [address] from Last 3 Months Insurance Medicare [facility] Medicare Unicare Care Teams Regional Clinical Director Relationship Specialty Start Date End Date Trudy Gordon MD [address] [place] [phone] PCP - General Family Medicine 03/30/21
--- OUTSIDE RECORDS SUMMARY | 2025-10-03 17:52 | XMS_ITS | Clinical Summary ---
Author Organization [facility] [address] [place] [address] [place] [address] Phone Care Team Providers Care Construction Specialist Name Role Phone Trudy Gordon MD Primary Care Provider [phone] Medications famotidine (PEPCID) 40 mg tabletIndication s:Gastroesophage al reflux disease without esophagitis TAKE 1 TABLET BY MOUTH TWICE A DAY DIRECTED 180 tablet 5 Active Surgical History Surgery Date Site/Laterality Comments OTHER SURGICAL HISTORY 1990 PROCEDURE: [place] TOTAL ABDOMINAL HYSTERECT W/WO RMVL TUBE OVARY CHOLECYSTECTOMY 1984 PROCEDURE: [place] CHOLECYSTECTOMY; COMMENT: open procedure KNEE SURGERY 2011 [...] 02/21/2026 3:00 PM EDT Appointment Radiology Department [address] [phone] Health Maintenance Due Date Last Done Comments [...] is recommended in 1 year. Mammo Location: [facility], [address] [place] [address], [address], . -------- FINAL REPORT -------- Dictated By: Eliecer Banks Dictated Date: 02/21/2025 09:26 ET Assigned Physician: Eliecer Banks Reviewed and Electronically Signed By: Eliecer Banks Signed Date: 02/21/2025 09:30 ET Workstation ID: [id number] Transcribed By: Self Edit Transcribed Date: 02/21/2025 [...] is recommended in 1 year. Mammo Location: [facility], [address] [place] [address], [address], . -------- FINAL REPORT -------- Dictated By: Eliecer Banks Dictated Date: 02/21/2025 09:26 ET Assigned Physician: Eliecer Banks Reviewed and Electronically Signed By: Eliecer Banks Signed Date: 02/21/2025 09:30 ET Workstation ID: [id number] Transcribed By: Self Edit Transcribed Date: 02/21/2025 [...] normal bone density by WHO criteria. The [facility] Department of Internal Medicine recommends using [...] alternative screening schedule based on yazmin Carvalho., [facility] December 09, 2011 for patients with osteopenia [...] normal bone density by WHO criteria. The [facility] Department of Internal Medicinerecommends using National [...] alternative screening schedule based on yazmin Carvalho., [facility] for patients with osteopenia (based on [...] Recently Relevant to Health Maintenance Insurance MEDICARE [facility] Care Teams Construction Specialist Relationship Specialty Start Date End Date Trudy Gordon MD PCP - General 10/03/14
== END 2025-10-02 14:26 | disposition home or self-care (01) ==
LOC: HO.HOSX 14:25
PROVIDERS: Visit Provider Orthopaedic Surgery
DX: M65.4 Radial styloid tenosynovitis [de Quervain] (principal); G56.03 Carpal tunnel syndrome, bilateral upper limbs
CPT/HCPCS: 73130; 99212

== ENCOUNTER 2025-11-11 08:09 | Day surgery (SDC) | payer MEDICARE, OTHER, SELFPAY ==
--- OUTSIDE RECORDS SUMMARY | 2025-10-10 08:16 | XMS_ITS | Clinical Summary ---
Author Organization [facility] Address [address] [place] [address] [address] [place] [address] Phone Care Team Providers Care Gis Analyst Name Role Phone Trudy Gordon MD Primary Care Provider [phone] Allergies Active Allergy Reactions Criticality Noted Date [...] Office Visit [facility] [address] [phone] Rory Tuttle MD Stage 3 chronic kidney [...] Visit [facility] [address] [phone] Rory Tuttle MD [address] [phone] Health Maintenance Due Date Last Done Comments [...] Creatinine, Ur 130.0 Not Estab. mg/dL [facility] Albumin, Urine 8.8 Not Estab. ug/mL [facility] Albumin/Creatin ine Ratio 7 0 - 29 mg/g creat [facility] Comment: Normal: 0 - 29 Moderately increased: 30 - 300 Severely increased: >300 Urine Urine specimen obtained by clean catch procedure / Unknown 07/15/2025 3:24 PM EDT 07/15/2025 us Rory Tuttle MD LAB URINE ORDERABLES Final Resul t [facility] [address] [place] [address] * (ABNORMAL) Renal funtion panel (07/15/2025 3:24 PM EDT) Glucose 97 70 - 99 mg/dL [facility] BUN 18 8 - 27 mg/dL [facility] Creatinine 1.31(H) 0.57 - 1.00 mg/dL [facility] eGFR CKD-EPI CR 2020 43(L) >59 mL/min/1.7 3 [facility] BUN/Creatinine Ratio 14 12 - 28 [facility] Sodium 142 134 - 144 mmol/L [facility] Potassium 4.7 3.5 - 5.2 mmol/L [facility] Chloride 105 96 - 106 mmol/L [facility] Bicarbonate (CO2) 20 20 - 29 mmol/L [facility] Calcium 9.8 8.7 - 10.3 mg/dL [facility] Albumin 4.5 3.8 - 4.8 g/dL [facility] Phosphorus 4.2 3.0 - 4.3 mg/dL [facility] Blood Venous blood / Unknown 07/15/2025 3:24 PM EDT 07/15/2025 us Rory Tuttle MD LAB BLOOD ORDERABLES Final Resul t [facility] [address] [place] [address] from Last 3 Months Insurance Medicare [facility] Medicare [employer] Care Teams Gis Analyst Relationship Specialty Start Date End Date Trudy Gordon MD [address] [place] [id number] PCP - General Family Medicine 03/30/21
--- NOTE | 2025-11-11 08:10 | P.OP_ITS ---
Operative Note Operative Note Date of Service: 11/11/25 Narrative: Operative Note Preop diagnosis: 1. Right DeQuervain's tenosynovitis 2. Right carpal tunnel syndrome Postop diagnosis: Same Procedure: 1. Right 1st dorsal compartment release 2. Right carpal tunnel release 3. Right abductor pollicis longus tenosynovectomy Surgeon: Massiel Gupta MD Supervisor Phosphatic Fertilizer: None Anesthesia: local block using 1% lidocaine with epinephrine Findings: Significantly Thickened 1st dorsal compartment. The EPB tendon was noted to be in a separate compartment EBL: Less than 5 mL Tourniquet time: None Specimens: None Complications: None Disposition: Brought to recovery room in stable condition Plan: Follow-up for 7-10 days for wound check and suture removal Indications: The patient is a 75 years old, with right DeQuervain's tenosynovitis and right carpal tunnel syndrome that have been unresponsive to nonoperative management. The risks and benefits of operative treatment including but not limited to risk of damage to blood vessels, nerves, tendons, infection, persistent pain, persistent symptoms, recurrence or possible need for additional surgery were discussed with the patient and the patient wishes to proceed with surgery. Procedure: Once consent was obtained a local block was performed in the preop area using a combination of 1% lidocaine with epinephrine. The patient was then brought back to the operating suite and placed on the operative table in supine position. The right upper extremity was prepped and draped in a standard surgical fashion. Once assured that we had a good block, a 2.0 cm longitudinal incision was made centered over the right carpal tunnel. The incision was made through the skin to the subcutaneous tissues using a #15 blade. Dissection was made down to the level of the transverse carpal ligament with care being taken to protect the palmar cutaneous nerve. Once the transverse carpal ligament was clearly visualized, a longitudinal incision was made in the transverse carpal ligament 1st using a #15 blade, then using tenotomy scissors under direct visualization. Care was taken to look for and protect the motor branch of the median nerve when seen in this area. Once satisfied with our carpal tunnel release the wound was irrigated with normal saline. Once assured that we had a good block, a 1.5 cm longitudinal incision was made centered over the 1st dorsal compartment as it passed over the radial styloid of the right wrist. The incision was made through the skin to the subcutaneous tissues using a #15 blade. Careful dissection was made down to the level of the 1st dorsal compartment using tenotomy scissors, with care being taken to protect the nearby branches of the superficial radial nerve. Once the 1st dorsal compartment was exposed, A longitudinal incision was made in the 1st dorsal compartment 1st using a #15 blade, then using tenotomy scissors under direct visualization. The 1st dorsal compartment was noted to be significantly thickened. We also found the extensor pollicis brevis tendon to be in a separate compartment that appeared to be rather tight because of the thickened 1st dorsal compartment. The EPB tendon was also released longitudinally using a 15. Blade and iris scissors under direct visualization. We also found some abundant inflammatory tenosynovium about the APL tendon. I performed a tenosynovectomy excising this tenosynovium using iris and tenotomy scissors. Following our releases and tenosynovectomy, we saw smooth gliding abductor pollicis longus and extensor pollicis brevis tendons. Once satisfied with our 1st dorsal compartment release the wound was copiously irrigated with normal saline and hemostasis was obtained with a brief period of local pressure. The subcutaneous layer was closed with some 4-0 Vicryl suture, and the skin edges were reapproximated with some 5.0 nylon suture material. A sterile dressing was applied. The patient appears to have tolerated the procedure well and with no complications. All digits were well vascularized at the conclusion of the case.
--- NOTE | 2025-11-11 08:10 | MHC.SHP ---
Pre-Procedural Eval Section A - 24 Hr Update-Section A only Date of Service: 11/11/25 The patient is an INPATIENT: No Changes since office visit: No Cold of Flu in the past 2 weeks, No New Medical Problems, No Changes in Medication and No Patient answered all questions The patient has been examined within 24 hours of the surgical procedure. The History & Physical has been completed within 30 days and I have reviewed it.: Yes Section B - Complete if H&P > 30 days Chief Complaint: Radial styloid tenosynovitis [de Quervain],carpal Allergies: Allergies Allergy/AdvReac Type Severity Reaction Status Date / Time morphine Allergy Severe Anaphylaxis Verified 10/02/25 09:49 ibuprofen Allergy Mild Stomach Verified 10/02/25 09:49 Upset Sulfa (Sulfonamide Allergy Mild nausa Verified 10/02/25 09:49 Antibiotics) cortizon Allergy Mild Flushing Uncoded 10/02/25 09:49 Plan Diagnosis/Plan: Unchanged I have reviewed the history and physical and performed a pertinent physical examination on my patient. No changes have occurred unless specified. Time Spent With Patient Time: Total time managing care of this patient today ____ minutes.
[2025-11-11 08:18] VITALS: BP 148/84; PULSE 102; RESP 18; TEMP 36.7; O2SAT 95
[2025-11-11 08:45] VITALS: BMI 35.1
[2025-11-11 09:37] VITALS: BP 137/83; PULSE 95; RESP 16; O2SAT 97
== END 2025-11-11 10:05 | disposition home or self-care (01) ==
PROVIDERS: PCP Family Medicine; Visit Provider Orthopaedic Surgery
PROC: (CPT 64721; principal; 2025-11-11 08:50)
PROC: (CPT 25118; 2025-11-11 08:50)
DX: G56.01 Carpal tunnel syndrome, right upper limb (principal); M65.4 Radial styloid tenosynovitis [de Quervain]; M79.641 Pain in right hand; M25.531 Pain in right wrist; R20.0 Anesthesia of skin; R20.2 Paresthesia of skin; I10 Essential (primary) hypertension; Z88.2 Allergy status to sulfonamides; Z88.5 Allergy status to narcotic agent; Z88.6 Allergy status to analgesic agent; Z88.8 Allergy status to other drugs, medicaments and biological substances; Z90.49 Acquired absence of other specified parts of digestive tract; Z98.890 Other specified postprocedural states
CPT/HCPCS: 25118; 25000; 64721; J0165; J2003

== ENCOUNTER → 2025-11-11 08:09 | Outpatient (BNV) | payer MEDICARE, OTHER, SELFPAY | PROVIDERS: PCP Family Medicine; Visit Provider Orthopaedic Surgery | DX: M65.4 Radial styloid tenosynovitis [de Quervain] (principal); G56.01 Carpal tunnel syndrome, right upper limb | CPT/HCPCS: 25000; 64721 ==